=== PATIENT | male | born 1945 | race Caucasian/White ===

== ENCOUNTER → 2018-07-01 | Outpatient (CLI) | payer BC ==
[2018-07-01 12:58] LABS: Potassium 3.6 mmol/L (3.5-5.1)
[2018-07-01 13:02] LABS: Basophils # (auto) 0 uL; Basophils % (auto) 0.6 % (0.0-2.0); Eosinophils # (auto) 0.1 uL; Eosinophils % (auto) 1.7 % (0.0-7.0); Hemoglobin 14.4 g/dL (13.5-17.5); Lymphocytes # (auto) 1.2 uL; Monocytes # (auto) 0.3 uL; Neutrophils # (auto) 4.5 uL; White Blood Cell 6.1 10^3/uL (4.4-10.8)
[2018-07-01 13:04] LABS: Hematocrit 41.1 % (41.0-53.0); Lymphocytes % (auto) 19.3 % (10.0-50.0); Mean Corpuscular Hemoglobin 35.5 pg (28.0-32.0); Mean Corpuscular Hgb Conc. 35.1 g/dL (32.0-36.0); Monocytes % (auto) 4.9 % (0.0-12.0); Neutrophils % (auto) 73.5 % (37.0-80.0); Platelet Count (auto) 244 10^3/uL (140-450); Red Blood Cells 4.07 10^6/uL (4.5-5.90); Red Cell Distribution Width 13.2 % (11.8-14.3)
[2018-07-01 13:09] LABS: Folate (Folic Acid) 14.04 ng/mL (5.38-24)
[2018-07-01 13:11] LABS: BUN/Creatinine Ratio 24.5; Calcium 8.4 mg/dL (8.5-10.1)
[2018-07-01 13:14] LABS: Bilirubin, Total 0.8 mg/dL (0.2-1.0)
[2018-07-01 13:28] LABS: Urine Bacteria NONE SEEN /hpf (None Seen); Urine Blood Negative /uL (Negative); Urine Hyaline Cast FEW /lpf (0 - 2); Urine Specific Gravity 1.018 (1.001-1.035); Urine WBC 1 /hpf (0 - 3)
== END | disposition home or self-care (01) ==
LOC: LAB 10:13
PROVIDERS: ATTEND Nurse Practitioner
DX: E78.5 Hyperlipidemia, unspecified (principal)
CPT/HCPCS: 36415; 80053; 80061; 81001; 82306; 82607; 82746; 83036; 84443; 85025

== ENCOUNTER → 2018-11-01 | Outpatient (CLI) | payer BC ==
[2018-11-01 11:53] LABS: Basophils # (auto) 0 uL; Basophils % (auto) 0.9 % (0.0-2.0); Eosinophils # (auto) 0.3 uL; Eosinophils % (auto) 6.8 % (0.0-7.0); Hematocrit 40.5 % (41.0-53.0); Hemoglobin 13.9 g/dL (13.5-17.5); Lymphocytes % (auto) 21.4 % (10.0-50.0); Mean Corpuscular Hemoglobin 34.4 pg (28.0-32.0); Mean Corpuscular Hgb Conc. 34.3 g/dL (32.0-36.0); Mean Corpuscular Volume 100.5 fL (80.0-100.0); Monocytes # (auto) 0.3 uL; Monocytes % (auto) 5.3 % (0.0-12.0); Neutrophils # (auto) 3.1 uL; Neutrophils % (auto) 65.6 % (37.0-80.0); Platelet Count (auto) 214 10^3/uL (140-450); Red Blood Cells 4.03 10^6/uL (4.5-5.90); Red Cell Distribution Width 13.3 % (11.8-14.3); White Blood Cell 4.8 10^3/uL (4.4-10.8)
[2018-11-01 12:17] LABS: Urine Bacteria NONE SEEN /hpf (None Seen); Urine Blood Negative /uL (Negative); Urine Specific Gravity 1.017 (1.001-1.035); Urine WBC <1 /hpf (0 - 3)
[2018-11-01 12:20] LABS: Albumin 3.9 g/dL (3.4-5.0); Potassium 3.6 mmol/L (3.5-5.1)
[2018-11-01 12:27] LABS: BUN/Creatinine Ratio 16.9; Calcium 9.1 mg/dL (8.5-10.1); Total Protein 7.1 g/dL (6.4-8.2)
== END | disposition home or self-care (01) ==
LOC: LAB 11:11
PROVIDERS: ATTEND Nurse Practitioner
DX: E78.5 Hyperlipidemia, unspecified (principal)
CPT/HCPCS: 36415; 80053; 80061; 81001; 82306; 83036; 84443; 85025

== ENCOUNTER → 2019-04-26 | Outpatient (CLI) | payer BC ==
[2019-04-26 13:40] LABS: Basophils # (auto) 0 uL; Basophils % (auto) 0.5 % (0.0-2.0); Eosinophils # (auto) 0.1 uL; Neutrophils # (auto) 3.8 uL; Red Cell Distribution Width 13.3 % (11.8-14.3); White Blood Cell 5.4 10^3/uL (4.4-10.8)
[2019-04-26 13:43] LABS: Eosinophils % (auto) 2.4 % (0.0-7.0); Hematocrit 37.3 % (41.0-53.0); Hemoglobin 12.9 g/dL (13.5-17.5); Lymphocytes % (auto) 19.2 % (10.0-50.0); Mean Corpuscular Hgb Conc. 34.7 g/dL (32.0-36.0); Mean Corpuscular Volume 101.1 fL (80.0-100.0); Monocytes # (auto) 0.4 uL; Monocytes % (auto) 7.4 % (0.0-12.0); Neutrophils % (auto) 70.5 % (37.0-80.0); Platelet Count (auto) 211 10^3/uL (140-450); Red Blood Cells 3.68 10^6/uL (4.5-5.90)
[2019-04-26 13:52] LABS: Albumin 3.9 g/dL (3.4-5.0); Calcium 8.9 mg/dL (8.5-10.1); Potassium 3.5 mmol/L (3.5-5.1)
[2019-04-26 13:57] LABS: Bilirubin, Total 0.8 mg/dL (0.2-1.0)
[2019-04-26 14:08] LABS: Urine Bacteria NONE SEEN /hpf (None Seen); Urine Blood Negative /uL (Negative); Urine Specific Gravity 1.016 (1.001-1.035); Urine WBC 1 /hpf (0 - 3)
== END | disposition home or self-care (01) ==
LOC: LAB 13:00
PROVIDERS: ATTEND Nurse Practitioner
DX: E78.5 Hyperlipidemia, unspecified (principal)
CPT/HCPCS: 36415; 80053; 80061; 81001; 84443; 85025

== ENCOUNTER 2019-06-16 00:40 | Inpatient (IN) | payer BC ==
[2019-06-16] VITALS (15 sets, daily range): BP systolic 92–149; BP diastolic 66–117
[~2019-06-16] VITALS: Ht 160 cm; Wt 58.4 kg
--- NOTE | 2019-06-16 00:12 | NUR ---
YVONNE HOSPITALIST PAGED FOR ADMIT ORDERS
--- NOTE | 2019-06-16 00:20 | NUR ---
PATIENT XFER FROM THE [facility] REPORT RECEIVED FROM CIRCUS RIDER ABHILASH AND TRANSFER RN PATIENT NOTED TO BE AFIB 120'S TO 140'S, INFUSING AMIODARONE GTT TO LEFT WRIST 22G AT 0.5MG/MIN RIGHT FA IV FLUSHED AND NOTED TO BE LEAKING AND INFILTRATED, IV REMOVED WITH CATHETER FULLY INTACT AND PRESSURE DRESSING APPLIED PATIENT IS ALERT TO SELF ONLY , REORIENTED APPROPRIATELY AND NOTED TO FOLLOW COMMANDS, PUPILS ARE 4 AND REACTIVE TO LIGHT ON 2L NC WITH AUDIBLE EXPIRATORY WHEEZING POX 95%.BLANCHABLE REDNESS TO SACRUM WITH PREVENTATIVE OPTIFOAM. BILATERAL SOFT MITTENS PLACED ON PATIENT'S HANDS DUE TO PATIENT ATTEMPTING TO REMOVE IV AND MONITOR. BED ALARM ON. WILL CONTINUE POC
--- NOTE | 2019-06-16 00:45 | NUR ---
AM CARE COMPLETE BED BATH AND TRENT CARE DONE USING CHG WIPES AND WARM WASH CLOTHS NEW GOWN PLACED ON PATIENT AND REPOSITIONED IN BED FOR COMFORT
--- NOTE | 2019-06-16 01:00 | NUR ---
IV insertion IV access obtained, via clean sterile technique by inserting 22 gauge catheter at left upper arm after 1 attempt. IV secured properly. No trauma to site. Patient tolerated well.
[2019-06-16] MEDS ORDERED: MORPHINE SULF INJ 2 MG/ML SYRINGE 1ML IV PRN (01:15)
[2019-06-16] MEDS ORDERED: NITROGLYCERIN 0.4 MG SL TAB SL PRN (01:15)
[2019-06-16] MEDS ORDERED: ONDANSETRON HCL 4 MG/2 ML VIAL IV PRN (01:15)
--- NOTE | 2019-06-16 01:17 | NUR ---
SPOKE WITH YVONNE OVER THE PHONE REGARDING PATIENT STATUS AND HEART RATE PER YVONNE GIVE 75CC OF AMIO BOLUS AND CONTINUE THE 0.5MG/MIN DRIP AFTER WILL FOLLOW ORDERS THROUGH
[2019-06-16] MEDS ORDERED: AMIODARONE HCL 900 MG IV ONE (01:18)
[2019-06-16] MEDS: TEMAZEPAM 15 MG CAP PO PRN ×2 (01:55→22:22)
--- NOTE | 2019-06-16 01:55 | NUR ---
12 LEAD EKG DONE BY ZOHAIB STANLEY AND PLACED IN HARD CHART
[2019-06-16 01:58] LABS: Basophils # (auto) 0.1 uL; Basophils % (auto) 0.9 % (0.0-2.0); Eosinophils # (auto) 0.2 uL; Hematocrit 37.9 % (41.0-53.0); Hemoglobin 13.5 g/dL (13.5-17.5); Lymphocytes # (auto) 1.6 uL; Lymphocytes % (auto) 16.8 % (10.0-50.0); Mean Corpuscular Hemoglobin 35.2 pg (28.0-32.0); Mean Corpuscular Hgb Conc. 35.7 g/dL (32.0-36.0); Mean Corpuscular Volume 98.4 fL (80.0-100.0); Monocytes # (auto) 0.7 uL; Neutrophils # (auto) 6.9 uL; Neutrophils % (auto) 73.3 % (37.0-80.0); Platelet Count (auto) 295 10^3/uL (140-450); Red Blood Cells 3.85 10^6/uL (4.5-5.90); White Blood Cell 9.4 10^3/uL (4.4-10.8)
[2019-06-16 02:03] LABS: Urine Bacteria FEW /hpf (None Seen); Urine Blood 2+ /uL (Negative); Urine Hyaline Cast FEW /lpf (0 - 2); Urine Mucus FEW (None Seen); Urine Specific Gravity 1.027 (1.001-1.035); Urine WBC 13 /hpf (0 - 3)
[2019-06-16 02:16] LABS: Calcium 8.1 mg/dL (8.5-10.1); Potassium 4.2 mmol/L (3.5-5.1)
[2019-06-16 02:18] LABS: BUN/Creatinine Ratio 13.6
[2019-06-16 02:21] LABS: INR 1.06 (0.9-1.15); Partial Thromboplastin Time 35.6 sec (23.64-32.05)
[2019-06-16 02:23] LABS: Bilirubin, Total 0.6 mg/dL (0.2-1.0); Total Protein 6.5 g/dL (6.4-8.2)
[2019-06-16] MEDS ORDERED: ATORVASTATIN 20 MG TAB PO ONE (02:30)
[2019-06-16] MEDS: ALBUTEROL SULF 2.5 MG/0.5ML(0.5%) NEB SOLN NEB PRN ×2 (02:57→18:14)
--- NOTE | 2019-06-16 04:39 | NUR ---
ROUNDS PATIENT APPEARS TO BE SLEEPING WITH NO S/S OF DISTRESS OR SOB, BREATHING UNLABORED AND SYMMETRICAL ON 2L NC WITH POX 97%. AFIB 104, RR 22. BED ALARM ON. WILL CONTINUE TO MONITOR.
[2019-06-16] MEDS: LEVOTHYROXINE SODIUM 25 MCG TAB PO SCH (05:50)
--- NOTE | 2019-06-16 06:07 | NUR ---
RT NOTE: WENT TO PTS ROOM TO ASSESS FOR PRN BREATHING TX, PT WAS SLEEPING AT THIS TIME. NO S/S OF SOB. HR 113, RR 18, SPO2 96% ON 2L NC. WILL CONTINUE TO MONITOR PT.
[2019-06-16] MEDS: PANTOPRAZOLE 40 MG TAB PO SCH (06:26)
--- NOTE | 2019-06-16 06:53 | NUR ---
END OF SHIFT NOTE PATIENT RESTING IN BED WITH EYES CLOSED, NO S/S OF DISTRESS OR SOB. CONTINUES TO BE IN AFIB 111, ON 2L NC 98%. PATIENT REMAINS STABLE THROUGHOUT THE NIGHT, BP CURRENTLY IS 122/89. BED ALARM ON. WILL CONTINUE MONITORING AND ENDORSE CARE TO DAY SHIFT RN.
--- NOTE | 2019-06-16 07:30 | NUR ---
RECEIVED PATIENT SEMI FOWLERS IN BED, ANSWERS TO NAME BEING CALLED, A/O TIMES 3, ABLE OT FOLLOW COMMANDS, HR 120 IN AFIB, TRENT TO GRAVITY, DENIES PAIN, SALINE LOCK TO THE LEFT WRIST FLUSHED AND PATENT WAS PLACED WHILE THE PATIENT WAS AT [facility], SALINE LOCK TO THE LAC 22G WITH AMIODARONE INFUSING AT 16.66ML/HR OR 0.5 MG, BY THE IV PUMP,
--- NOTE | 2019-06-16 08:30 | NUR ---
WAS FEED HIS BREAKFAST NO PROBLEM WITH SWALLOWING
--- NOTE | 2019-06-16 08:55 | NUR ---
GRANDSON AT BEDSIDE PATIENT APPEARS TO BE ANXIOUS, HR INCREASING IN THE 130'S -140'S
--- NOTE | 2019-06-16 09:18 | NUR ---
SITTING UP IN BED WITH EYES CLOSED APPEARS TO BE SLEEPING
--- NOTE | 2019-06-16 09:54 | NUR ---
BELEN IN TO SEE THE PATIENT
[2019-06-16] MEDS: METOPROLOL TARTRATE 25 MG TAB PO SCH ×2 (10:00→22:00)
[2019-06-16] MEDS: HCTZ 25 MG TAB PO SCH (10:00)
--- NOTE | 2019-06-16 10:00 | NUR ---
EXPLAIN MEDICATIONS TO THE PATIENT REGARDING THE DOSAGE, USAGE AND THE SIDE EFFECTS, RENZO BELEN STATES THE PATIENT DOESN'T TAKE THE HTCZ IT WAS STOPPED, B/P IS 96/69, B/P MEDS WILL BE HELD AT THIS TIME,, SANTIAGO STATES HIS B/P RUNS LOW AT HOME AND THEY KEEP HIM LYING FLAT TO KEEP IT UP
--- NOTE | 2019-06-16 10:30 | NUR ---
RECHECKED B/P 110/79
[2019-06-16] MEDS ORDERED: BENA10TA9 PO (10:35)
[2019-06-16] MEDS ORDERED: ASP81EC PO (10:35)
[2019-06-16] MEDS ORDERED: LEV50T PO (10:35)
--- NOTE | 2019-06-16 10:35 | NUR ---
ECHO BEING DONE,
[2019-06-16] MEDS: ASPirin 81 mg TAB PO SCH (10:59)
--- NOTE | 2019-06-16 11:30 | NUR ---
LYING IN BED ABLE TO ANSWER MOST QUESTIONS EXCEPT THE THE DATE, VERY FIDGETY
--- NOTE | 2019-06-16 12:23 | NUR ---
STILL MOVING AROUND IN THE BED, PULLING ON THE COVERS, SAYS HE CAN'T BE STILL
--- NOTE | 2019-06-16 12:49 | NUR ---
PATIENT BEING FED HIS LUNCH
--- NOTE | 2019-06-16 13:28 | NUR ---
DAUGHTER IN TO VISIT THE PATIENT AND BROUGHT IN SOME FOOD THAT SHE THOUGHT HE MIGHT EAT
--- NOTE | 2019-06-16 14:05 | NUR ---
DR MARK IN TO SEE THE PATIENT AND SPOKE TO THE DAUGHTER ABOUT THE POC
[2019-06-16] MEDS ORDERED: cefTRIAXone 1GM/50ML D5W 50 ML IV ONE (14:15)
[2019-06-16] MEDS ORDERED: AZITHROMYCIN 500MG/ 250ML 250 ML IV ONE (14:15)
[2019-06-16 14:34] LABS: Cholesterol 130 mg/dL (< 200); HDL Cholesterol 33 mg/dL (40-59); LDL Cholesterol 90 mg/dL (< 100); Triglycerides 98 mg/dL (< 150)
--- NOTE | 2019-06-16 16:00 | NUR ---
DR PAREDES IN TO SEE THE PATIENT AND SPOKE WITH THE DAUGHTER ABOUT THE POC, STATES HE MAY DO A STRESS TEST TOMORROW
--- NOTE | 2019-06-16 16:20 | NUR ---
NOTIFIED DR MARK OF THE D- DIMER RESULTS OF 0.59
--- NOTE | 2019-06-16 16:45 | NUR ---
DAUGHTER LEFT AND WENT HOME AND GRANDSON BACK TO STAY WITH HE PATIENT
--- NOTE | 2019-06-16 16:59 | NUR ---
PATIENT STATES HE IG GOING TO WATCH THE FOOTBALL GAME
--- NOTE | 2019-06-16 17:30 | NUR ---
PATIENT TOOK OFF THE GLOVES AND IS NOW IS TRYING TO TAKE OFF OXYGEN AND THE MONITOR WIRES, GLOVES REPLACED
--- NOTE | 2019-06-16 18:16 | NUR ---
DAUGHTER IN TO SEE THE PATIENT, MED NEB TREATMENT BEING GIVEN DUE TO PATIENT WHEEZING
--- NOTE | 2019-06-16 18:19 | NUR ---
RT NOTE PT WAS SEEN BY RT FOR PRN HHN TX. PT HAS AUDIBLE WHEEZES. PT TOLERATES WELL VIA MASK. FAMILY AT BEDSIDE. NO ADVERSE REACTION NOTED. CONT ORDERED Addendum: 06/16/19 at 1820 by Damaris Adams RT Amended: Links added.
--- NOTE | 2019-06-16 18:33 | NUR ---
SITTING UP IN THE BED, BEING FEED HIS DINNER BY THE FAMILY, O2 AT 2L BY N/C, A/ O BUT CONFUSED AT TIMES, TRENT TO GRAVITY, AMIODARONE DRIP INFUSING INTO THE LAC AT 16.66ML/HR BY THE IV PUMP, SALINE LOCK TO THE LEFT WRIST FLUSHED AND PATIENT, DENIES PAIN , WILL CONTINUE TO MONITOR AND GIVE REPORT TO THE NEXT SHIFT
--- NOTE | 2019-06-16 20:05 | NUR ---
INITIAL CONTACT ASSUMED CARE OF PATIENT PATIENT APPEARS TO BE RESTING IN BED COMFORTABLY IN SEMI-FOWLERS POSITION AAOX4, VITAL SIGNS WITHIN NORMAL LIMITS. NO S/S OF DISTRESS, PATIENT DENIES PAIN AT THIS TIME NOTED PATIENT IS ON AN AMIODARONE DRIP. SEE IV SPREADSHEET FOR MEDICATIONS AND TITRATION. TRENT CATHETER IN TACT AND DRAINING TO GRAVITY. IV LINES PATENT INTACT AND ASYMPTOMATIC AT THIS TIME. PATIENT IS IN FULL VIEW OF NURSES STATION. SAFETY MAINTAINED, WILL CONTINUE TO MONITOR
--- NOTE | 2019-06-16 21:15 | NUR ---
FAMILY LEFT THE BEDSIDE GRANDSON STATED THAT HE WOULD BE BACK IN THE MORNING
[2019-06-16] MEDS: AMIODARONE HCL 900 MG in DEXTROSE 500 ML IV SCH (21:32)
--- NOTE | 2019-06-16 22:00 | NUR ---
FAMILY IN THE WAITING AREA I SPOKE TO FAMILY MEMBER AND ASKED THAT SHE RETURN TO VISIT PATIENT IN THE MORNING. PATIENT IS SLEEPING AT THIS TIME. I EXPLAINED THAT WHEN FAMILY IS AT THE BEDSIDE PATIENT'S HR INCREASES. ALSO PATIENT STATED THAT HE HAD NOT SLEPT DURING THE DAY AND WAS TIRED.
--- NOTE | 2019-06-16 23:00 | NUR ---
PATIENT STATUS PATIENT PULLED OF BOTH SOFT MITTENS PATIENT GIVEN TEACHING ON THE IMPORTANCE OF KEEPING IV LINES IN TACT SOFT MITTENS REPLACED SAFETY MAINTAINED, WILL CONTINUE TO MONITOR
[2019-06-17] VITALS (41 sets, daily range): BP systolic 76–166; BP diastolic 51–99
--- NOTE | 2019-06-17 03:45 | NUR ---
22 G IV LEFT A/C DISCONTINUED RED DISCOLORATION TO IV SITE, PATIENT COMPLAINING OF DISCOMFORT
--- NOTE | 2019-06-17 04:05 | NUR ---
20 G IV RIGHT WRIST
[2019-06-17] MEDS: AMIODARONE HCL 900 MG in DEXTROSE 500 ML IV SCH (05:44)
[2019-06-17] MEDS: LEVOTHYROXINE SODIUM 25 MCG TAB PO SCH (07:08)
[2019-06-17] MEDS: PANTOPRAZOLE 40 MG TAB PO SCH (07:08)
--- NOTE | 2019-06-17 08:00 | NUR ---
Opening Shift Note Assumed care of patient, awake and alert. Patient A&Ox2. Patient has mitts on bilateral hands. Patient pulling at wires and IV lines. PMSC and skin intact bilateral. Patient on the monitor. Patient on 2L NC saturation at 95%.IV right wrist 20 running Amiodarone at 0.5mg/hr and left wrist 22G saline locked. Both IV's Patent, clean, dry, and intact. Caldera to gravity. No S/S of distress/SOB or pain. Instructed on POC and to call for assist. Bed locked and in the lowest position, side rails up x3, call light with in reach. Will continue to monitor.
--- NOTE | 2019-06-17 08:45 | NUR ---
Patient refused to eat with assist from me. Patient's grandson Andrew at bedside and assisted patient to eat about 25% of his breakfast. Will continue to monitor.
--- NOTE | 2019-06-17 09:00 | NUR ---
Patient had a small brown/formed BM on bedpan. Will continue to monitor.
[2019-06-17] MEDS: ASPirin 81 mg TAB PO SCH (09:21)
[2019-06-17] MEDS: HCTZ 25 MG TAB PO SCH (09:21)
[2019-06-17] MEDS: cefTRIAXone 1GM/50ML D5W 50 ML IV SCH (09:22)
[2019-06-17] MEDS: METOPROLOL TARTRATE 25 MG TAB PO SCH ×3 (09:22→21:50)
--- NOTE | 2019-06-17 10:00 | NUR ---
Medication dosages, usages, and side effects explained to patient. Patient unable to comprehend. Will continue to monitor.
--- NOTE | 2019-06-17 10:15 | NUR ---
Dr. Ramirez at bedside.
--- NOTE | 2019-06-17 10:45 | NUR ---
Stress Test Update Stress Test on hold. Pt. on amiodarone drip at 0.5 mg/min, per primary RN HR elevated and as of right now there are no orders to stop drip. Pt able to eat meals as scheduled and only to remain NPO before stress test procedure next week. Nuclear Medicine notified. Primary RN aware on POC.
--- NOTE | 2019-06-17 11:10 | NUR ---
Midline Placement Patient educated on need for midline placement. All risks and benefits explained and all questions and concerns addresses prior to procedure. 18g/10cm midline inserted via right basilic vein using Ultrasound. Sterile technique utilized. Blood return obtained from single lumen and flushed easily with NS using proper technique. Midline secured with saline lock; biodisc and occlusive dressing applied. Primary RN notified. Midline lot #[id number]. Note: Midline placed by Ella Cerda RN.
[2019-06-17] MEDS: AZITHROMYCIN 500MG/ 250ML 250 ML IV SCH (12:08)
--- NOTE | 2019-06-17 12:30 | NUR ---
Patient refused to eat lunch tray. Encouraged patient to drink water but patient refused. Will continue to monitor.
[2019-06-17 12:37] LABS: Calcium 8.4 mg/dL (8.5-10.1); Potassium 4.2 mmol/L (3.5-5.1)
[2019-06-17 12:39] LABS: BUN/Creatinine Ratio 16.9
[2019-06-17] MEDS: LEVALBUTEROL HCL 1.25 MG/3 ML NEB NEB SCH ×2 (13:50→18:19)
--- NOTE | 2019-06-17 13:50 | NUR ---
Paged respiratory for patient to receive breathing treatment.
--- NOTE | 2019-06-17 13:55 | NUR ---
Paged Dr. Ramirez. RT requested patient be placed on Bi-pap due to high respiratory rate of 40-50BPM. Dr. Ramirez ordered Bi-pap and for patient to be placed on Eliquis 2.5mg PO BID starting tonight.
--- NOTE | 2019-06-17 14:08 | NUR ---
Code called Patients respirations dropped from 46 to 15, Patient was guppy breathing. Eyes fixed with no response from patient. Femoral pulse was barely palpable. Dr. Schwartz at bedside. Bethany ICU charge and Brigitte MARTEL at bedside. See code sheet for details. Rosc back at 1418.
[2019-06-17] MEDS ORDERED: MIDAZOLAM HCL 1MG/1ML-2 ML VIAL ONE (14:12)
[2019-06-17] MEDS ORDERED: ETOMIDATE (2MG/ML) 20ML VIAL IV ONE (14:12)
[2019-06-17] MEDS ORDERED: SODIUM BICARBONATE 8.4 % INJ 50ML VIAL IV ONE (14:20)
--- NOTE | 2019-06-17 14:20 | NUR ---
Called Patient's daughter Kendra to come into hospital to explain Patient's situation.
--- NOTE | 2019-06-17 14:30 | NUR ---
Report given to Geronimo DANIEL. Patient going to ICU bed 109.
--- NOTE | 2019-06-17 14:45 | NUR ---
diagnostics tech at bedside. Addendum: 06/17/19 at 1503 by Patricia Falcon RN Time was 1345 not 1445
--- NOTE | 2019-06-17 14:50 | NUR ---
Spoke with Patient's daughter Kendra and family about patient situation. Family sent to ICU waiting room. FREDY galan.
--- NOTE | 2019-06-17 15:00 | NUR ---
Pt being admitted to ICU PHIL RUDD admitted to ICU via gurney on cardiac cath technician, and portable 02. Patient transfered to bed, connected to ICU monitoring and oxygen, and weighed by bedscale. Patient oriented to Mushtaq barrow RN, unit, room, bed, and unit policies regarding patient care and visiting hours. All questions and concerns addressed, patient verbalized understanding.
--- NOTE | 2019-06-17 15:00 | NUR ---
PT TRANSPORTED BY RT WALLS WITH NO INCIDENT REPORTED. WILL CONTINUE TO MONITOR PT
[2019-06-17] MEDS ORDERED: NOREPINEPHRINE 8 MG/250ML KIT 250 ML IV ONE (15:04)
--- NOTE | 2019-06-17 16:05 | NUR ---
FAMILY AT BEDSIDE. UPDATED ON PATIENT STATUS. ALL QUESTIONS AND CONCERNS ADDRESSED AT THIS TIME
--- NOTE | 2019-06-17 16:23 | NUR ---
DR. WELLINGTON AT BEDSIDE
[2019-06-17] MEDS ORDERED: SODIUM BICARBONATE 50ML VIAL 150 ML in SOD CHL 0.45% 1,000 ML IV SCH ×4 (16:45)
[2019-06-17] MEDS: PHENYLEPHRINE INJ 20 MG in SODIUM CHL 0.9% 250 ML IV SCH (16:48)
--- NOTE | 2019-06-17 17:06 | NUR ---
assessment Patient is a 74 year old male who is confused. I have called patients daughter Kendra at [phone] with no answer. Will continue to try and call. Addendum: 06/17/19 at 1709 by Karley SANCHEZ Amended: Links added.
[2019-06-17] MEDS: NOREPINEPHRINE 8 MG/250ML KIT 250 ML IV SCH ×2 (17:10→23:38)
[2019-06-17] MEDS: MIDAZOLAM DRIP 50 mg/50mL 50 ML IV SCH ×2 (17:11→21:36)
[2019-06-17] MEDS: SODIUM BICARBONATE 50ML VIAL 150 ML in SOD CHL 0.45% 1,000 ML IV SCH (17:39)
--- NOTE | 2019-06-17 18:19 | NUR ---
Respiratory note: RECEIVED PT ON VENT V15, VENT CONNECTED TO RED OUTLET AND O2 SOURCE. ALARMS ARE SET AND AUDIBLE. AMBU BAG AND MASK. BS ARE FINE COURSE, SXD SCANT CREAMY BAUGH. RN EULALIA AND PTS FAMILY AT BEDSIDE. MED NEB TX GIVEN INLINE WITHOUT ADVERSE REACTION NOTED. RT NAME AND PAGER ASSIGNMENT WRITTEN ON PTS ROOM BOARD.
--- NOTE | 2019-06-17 18:35 | NUR ---
DR. AVALOS PAGED AWAITING CALLBACK
--- NOTE | 2019-06-17 18:43 | NUR ---
DR. GALAN AT BEDSIDE SPEAKING WITH FAMILY
--- NOTE | 2019-06-17 19:00 | NUR ---
Respiratory note: TITRATED FIO2 TO FROM 80 TO 70% DUE TO ABG RESULTS. PER MD WELLINGTON, TITRATE TOLERATED. FREDY ESTEBAN AWARE OF CHANGE.
--- NOTE | 2019-06-17 19:13 | NUR ---
DR. AVALOS CALLBACK ORDERS RECEIVED
--- NOTE | 2019-06-17 19:21 | NUR ---
OPENING NOTES ASSUMED CARE, ON VENT AC MODE, SEDATION WITH VERSED @ MG/HR, AMIODARONE @ 0.5 MG/MIN, LEVOPHED @ 15 MCG/MIN, 1/2 NS W/ 3 VIALS NaHCO3 @ 125 ML/HR INFUSING IN THE RIGHT IJ, OGT IN PLACE, TRENT CATHETER DRAINING TO A LIGHT ARSLAN URINE. HR NOTED IN THE 140'S - 160'S, BP 143/82, AFEBRILE T 98.2 ORALLY. SPO2 99 %, CLEAR LUNG SOUNDS NOTED. BED IN LOWEST POSITION WITH SIDE RAILS UP, BED ALARM ON. WILL CONTINUE CARE.
--- NOTE | 2019-06-17 19:21 | NUR ---
REPORT GIVEN TO RORO DANIEL TO ASSUME CARE
[2019-06-17] MEDS ORDERED: DIGOXIN (250MCG/ML) 2 ML AMPULE IV ONE (19:30)
--- NOTE | 2019-06-17 20:00 | NUR ---
SCD'S PLACED ON BOTH LEGS.
--- NOTE | 2019-06-17 20:11 | NUR ---
Respiratory note: AT BEDSIDE FOR ROUTINE VENT CHECK. FIO2 TITRATED FROM 70% TO 60% RN RORO AT BEDSIDE AND AWARE OF O2 CHANGE.
--- NOTE | 2019-06-17 20:15 | NUR ---
FAMILY AT BEDSIDE
[2019-06-17] MEDS ORDERED: EPINEPHrine HCL 1 MG/10 ML SYRG IV ONE (20:24)
[2019-06-17] MEDS ORDERED: SODIUM BICARBONATE 8.4% INJ 50ML SYRINGE IV ONE (20:24)
--- NOTE | 2019-06-17 20:28 | NUR ---
LEVOPHED DECREASED TO 6 MCG/MIN, BP 143/82, HR 114.
--- NOTE | 2019-06-17 21:48 | NUR ---
D/C PIV'S IN BOTH WRISTS, REDNESS NOTED. PRESSURE APPLIED TO SITE.
--- NOTE | 2019-06-17 21:50 | NUR ---
LOPRESSOR HELD, PT ON LEVOPHED @ 4 MCG/MIN, BP 123/68, HR 95.
--- NOTE | 2019-06-17 22:19 | NUR ---
Respiratory note: AT BEDSIDE FOR ROUTINE VENT CHECK. FIO2 TITRATED FROM 60% TO 50% RN RORO AT BEDSIDE AND AWARE OF O2 CHANGE.
[2019-06-17] MEDS: APIXABAN 2.5 MG TAB NG SCH (23:37)
[2019-06-18] VITALS (77 sets, daily range): BP systolic 90–131; BP diastolic 45–75
[2019-06-18] MEDS: LEVALBUTEROL HCL 1.25 MG/3 ML NEB NEB SCH ×4 (00:15→19:17)
--- NOTE | 2019-06-18 00:15 | NUR ---
Respiratory note: AT BEDSIDE FOR ROUTINE VENT CHECK. SXD FOR SCANT CLEAR. MED NEB TX GIVEN INLINE WITHOUT ADVERSE REACTION NOTED. WILL CONTINUE TO MONITOR.
--- NOTE | 2019-06-18 02:21 | NUR ---
Respiratory note: AT BEDSIDE FOR ROUTINE VENT CHECK. FIO2 TITRATED FROM 50% TO 40% RN RORO MADE AWARE OF O2 CHANGE.
[2019-06-18] MEDS: SODIUM BICARBONATE 50ML VIAL 150 ML in SOD CHL 0.45% 1,000 ML IV SCH (03:19)
--- NOTE | 2019-06-18 04:00 | NUR ---
MORNING CARE DONE, COMPLETE LINENS CHANGED, REPOSITIONED FOR COMFORT.
--- NOTE | 2019-06-18 04:09 | NUR ---
Respiratory note: AT BEDSIDE FOR END OF SHIFT VENT CHECK. HME AND SX CATHETER CHANGED AT THIS TIME. NO OTHER VENT CHANGES MADE. WILL HAVE DAY SHIFT RT CONTINUE POC.
[2019-06-18 04:21] LABS: Basophils # (auto) 0.1 uL; Eosinophils # (auto) 0 uL; Hemoglobin 11.8 g/dL (13.5-17.5); Lymphocytes # (auto) 1.2 uL; Mean Corpuscular Hgb Conc. 35.6 g/dL (32.0-36.0); Monocytes # (auto) 0.3 uL; Neutrophils # (auto) 11.1 uL; Red Cell Distribution Width 13.5 % (11.8-14.3)
[2019-06-18 04:23] LABS: Basophils % (auto) 0.8 % (0.0-2.0); Eosinophils % (auto) 0.2 % (0.0-7.0); Hematocrit 33.1 % (41.0-53.0); Lymphocytes % (auto) 9.7 % (10.0-50.0); Mean Corpuscular Hemoglobin 34.7 pg (28.0-32.0); Mean Corpuscular Volume 97.6 fL (80.0-100.0); Monocytes % (auto) 2.6 % (0.0-12.0); Neutrophils % (auto) 86.7 % (37.0-80.0); Nucleated Red Blood Cells % 0.3 %; Platelet Count (auto) 247 10^3/uL (140-450); Red Blood Cells 3.39 10^6/uL (4.5-5.90); White Blood Cell 12.8 10^3/uL (4.4-10.8)
[2019-06-18 04:55] LABS: Albumin 2.5 g/dL (3.4-5.0); BUN/Creatinine Ratio 17.3; Calcium 7.7 mg/dL (8.5-10.1); Potassium 3.5 mmol/L (3.5-5.1)
[2019-06-18 05:03] LABS: Bilirubin, Total 0.7 mg/dL (0.2-1.0); Total Protein 5.3 g/dL (6.4-8.2)
[2019-06-18] MEDS: LEVOTHYROXINE SODIUM 25 MCG TAB PO SCH (06:05)
[2019-06-18] MEDS: MIDAZOLAM DRIP 50 mg/50mL 50 ML IV SCH (06:15)
--- NOTE | 2019-06-18 06:26 | NUR ---
END OF SHIFT LAYING ON BED STILL ON VENT, AC MODE, FIO2 40%, AMIODARONE DRIP @ 0.5 MG/MIN, LEVOPHED @ 2 MCG/MIN AND BICARBONATE DRIP @ 125 ML/HR. VS : BP 90/66, HR 86, R18, SPO2 96%, AFEBRILE. WILL GIVE THE REPORT TO DAY SHIFT RN.
--- NOTE | 2019-06-18 06:45 | NUR ---
Respiratory note: RECEIVED PATIENT ON V15 ESPRIT VENT ORALLY INTUBATED WITH AN 8.0 ETT SECURED VIA FELICITAS AT THE 22CM MARKING AT THE LIP, AND MECHANICALLY VENTILATED WITH THE CHARTED SETTINGS. SPO2 95%, LUNG SOUNDS CL/DIM T/O, NO SECRETIONS WHEN SUCTIONED. SKIN IS WARM/DRY TO THE TOUCH AND IS INTACT NEAR FELICITAS SITE. THERE IS AN OGT IN PLACE AND SECURED TO THE ETT, A TRIPLE LUMEN CENTRAL LINE IS PLACED IN THE RIGHT IJ, AND A MIDLINE CATHETER IS PLACED IN THE RIGHT UPPER ARM. THER EIS NON PITTING EDEMA NOTED ON BOTH ARMS, WITH THINNING OF THE SKIN ALSO NOTED. NO EDEMA IN LOWER EXTREMITIES, LEG SEQUENTIALS ARE IN PLACE AND OPERATIONAL. NO NEW AM CXR TO ASSESS. PATIENT IS UNRESPONSIVE TO BOTH VERBAL/TACTILE STIMULI AND IS SEDATED ON A VERSED DRIP. HE IS RESTING COMFORTABLY AND TOLERATING VENT WELL, NO CHANGES MADE. VENT PLUGGED INTO RED OUTLET AND ALL ALARMS ARE SET AND AUDIBLE. WILL CONTINUE TO ASSESS PATIENT WELL VENTILATOR FUNCTION. MED-NEB HELD MEDICATION WAS UNAVAILABLE. WILL CONSULT PHARMACY FOR MEDS.
--- NOTE | 2019-06-18 07:05 | NUR ---
OPENING NOTE SHIFT REPORT RECEIVED AND ASSUMED CARE OF PT FROM RORO DANIEL
--- NOTE | 2019-06-18 08:00 | NUR ---
DR. Gracie MARK AT BEDSIDE STATES HE WOULD LIKE ME TO COMMUNICATE TO FAMILY TO BE AT BEDSIDE TOMORROW AT 0730AM TO UPDATE. WILL INFORM FAMILY. ORDERS RECEIVED.
--- NOTE | 2019-06-18 08:30 | NUR ---
RN STARS AT BEDSIDE
--- NOTE | 2019-06-18 09:30 | NUR ---
EEG COMPLETED AT BEDSIDE. FREDY MEDINA AWARE.
[2019-06-18] MEDS: cefTRIAXone 1GM/50ML D5W 50 ML IV SCH (09:47)
[2019-06-18] MEDS: METOPROLOL TARTRATE 25 MG TAB PO SCH ×2 (09:48→22:19)
[2019-06-18] MEDS: APIXABAN 2.5 MG TAB NG SCH ×2 (09:49→22:18)
[2019-06-18] MEDS: DIGOXIN (250MCG/ML) 2 ML AMPULE IV SCH (09:56)
[2019-06-18] MEDS: HCTZ 25 MG TAB PO SCH (09:57)
--- NOTE | 2019-06-18 10:10 | NUR ---
DR. AVALOS AT BEDSIDE NO NEW ORDERS AT THIS TIME
[2019-06-18] MEDS: OMEPRAZOLE 20MG/10ML ORAL SUSP GT SCH (10:11)
--- NOTE | 2019-06-18 10:20 | NUR ---
Respiratory note: VT DECREASED TO [address] WELLINGTON'S TELEPHONE ORDER. FREDY POP MADE AWARE OF CHANGE.
[2019-06-18] MEDS: AZITHROMYCIN 500MG/ 250ML 250 ML IV SCH (10:33)
[2019-06-18] MEDS: AMIODARONE HCL 900 MG in DEXTROSE 500 ML IV SCH (11:25)
--- NOTE | 2019-06-18 12:00 | NUR ---
LEVOPHED TURNED OFF WILL CONTINUE TO MONITOR
--- NOTE | 2019-06-18 13:00 | NUR ---
VERSED TURNED OFF WILL CONTINUE TO MONITOR
--- NOTE | 2019-06-18 17:00 | NUR ---
DR. MILIAN CALLED REGARDING GI CONSULT FOR REPORT OF HEMATURIA WHILE AT [facility]. ORDERS RECEIVED
--- NOTE | 2019-06-18 18:30 | NUR ---
PT TAKEN DOWN FOR CT WITH THIS RN, RESPIRATORY THERAPIST, AND CHRISTMAS TREE GRADER. WILL CONTINUE TO MONITOR
--- NOTE | 2019-06-18 18:33 | NUR ---
RT Transport Note: Patient transported to {CT} with RN {MARIA A}. Patient transported to and from procedure on ventilator with previous ordered settings. Patient on pvc monitor with alarms set and audible, ambu-bag/mask connected to 02 tank. Patient returned to room with no adverse reaction noted. Transport completed without incident.
--- NOTE | 2019-06-18 19:15 | NUR ---
CLOSING NOTE SHIFT REPORT GIVEN AND CARE ENDORSED TO HARDIK DANIEL
--- NOTE | 2019-06-18 19:17 | NUR ---
RT NOTE RECEIVED PT INTUBATED AND ON VENT V15 ON STATED SETTINGS. VENT IS PLUGGED TO RED OUTLET. ALARMS ARE ON AND AUDIBLE AT NURSES STATION. AMBU BAG AT BEDSIDE AND CONNECTED TO O2 SOURCE. 8.0 ETT IS SECURED AT 22 TO THE ORAL LEFT WITH ANCHORFAST. BILATERAL BS ARE CLEAR/DIMINISHED. PT WAS SUCTIONED FOR SMALL RETURN. HHN GIVEN INLINE WITH 1.25 MG XOPENEX WITHOUT ADVERSE REACTION NOTED. CONT ORDERED. POX 97% Addendum: 06/18/19 at 2048 by Damaris Adams RT Amended: Links added.
--- NOTE | 2019-06-18 19:50 | NUR ---
OPEN NOTES Received patient intubated, not on any sedation. Patient opens eyes half way, has cough and gag but not following commands. Suctioned moderate amount oral secretions -thick and lee colored. VS stable. Physical assessment done -refer intervention. Still with IV Amiodarone drip at 16.66ml/hr. ECG - Atrial Fibrillation HR 65-80/min. BP stable. Repositioned,skin assessed. Right IJ TLC dressing dry and intact, unused port -saline locked. OGT clamped-no aspirate noted. Caldera catheter (Bardex) Fr16 in placed with yellowish cloudy urine output. will continue to monitor
--- NOTE | 2019-06-18 20:13 | NUR ---
RT NOTE ROUTINE VENT CHECK DONE. PT INTUBATED AND ON VENT V15 ON STATED SETTINGS. VENT IS PLUGGED TO RED OUTLET. ALARMS ARE ON AND AUDIBLE AT NURSES STATION. AMBU BAG AT BEDSIDE AND CONNECTED TO O2 SOURCE. 8.0 ETT IS SECURED AT 22 TO THE ORAL LEFT WITH ANCHORFAST. CONT ORDERED. POX 98% Addendum: 06/18/19 at 2051 by Damaris Adams RT Amended: Links added.
[2019-06-18] MEDS: PHENYLEPHRINE INJ 20 MG in SODIUM CHL 0.9% 250 ML IV SCH ×2 (20:52→20:53)
--- NOTE | 2019-06-18 22:00 | NUR ---
HYGIENE Sponge bath done. Hair washed. Partial linen change done. Skin assessed. Repositioned
--- NOTE | 2019-06-18 22:21 | NUR ---
RT NOTE ROUTINE VENT CHECK DONE. PT INTUBATED AND ON VENT V15 ON STATED SETTINGS. VENT IS PLUGGED TO RED OUTLET. ALARMS ARE ON AND AUDIBLE AT NURSES STATION. AMBU BAG AT BEDSIDE AND CONNECTED TO O2 SOURCE. 8.0 ETT IS SECURED AT 22 TO THE ORAL LEFT WITH ANCHORFAST. PT SUCTIONED FOR SCANT RETURN. CONT ORDERED. POX 96% Addendum: 06/18/19 at 2227 by Damaris Adams RT Amended: Links added.
[2019-06-19] VITALS (106 sets, daily range): BP systolic 11–152; BP diastolic 52–86
--- NOTE | 2019-06-19 00:03 | NUR ---
RE-ASSESS Patient waking up more, movement on the hands noted but still not following commands. VS stable. Suctioned, oral care done. Repositioned.
[2019-06-19] MEDS: LEVALBUTEROL HCL 1.25 MG/3 ML NEB NEB SCH ×5 (00:40→23:35)
--- NOTE | 2019-06-19 00:40 | NUR ---
RT NOTE ROUTINE VENT CHECK DONE. PT INTUBATED AND ON VENT V15 ON STATED SETTINGS. VENT IS PLUGGED TO RED OUTLET. ALARMS ARE ON AND AUDIBLE AT NURSES STATION. AMBU BAG AT BEDSIDE AND CONNECTED TO O2 SOURCE. 8.0 ETT IS SECURED AT 22 TO THE ORAL LEFT WITH ANCHORFAST.PT SUCTIONED FOR SCANT RETURN. HHN GIVEN INLINE WITH 1.25 MG XOPENEX WITHOUT ADVERSE.CONT ORDERED. POX 97% Addendum: 06/19/19 at 0130 by Damaris Adams RT Amended: Links added.
[2019-06-19] MEDS: PHENYLEPHRINE INJ 20 MG in SODIUM CHL 0.9% 250 ML IV SCH ×3 (01:47→20:38)
--- NOTE | 2019-06-19 02:19 | NUR ---
RT NOTE ROUTINE VENT CHECK DONE. PT INTUBATED AND ON VENT V15 ON STATED SETTINGS. VENT IS PLUGGED TO RED OUTLET. ALARMS ARE ON AND AUDIBLE AT NURSES STATION. AMBU BAG AT BEDSIDE AND CONNECTED TO O2 SOURCE. 8.0 ETT IS SECURED AT 22 TO THE ORAL RIGHT WITH ANCHORFAST. PT SUCTIONED FOR SCANT RETURN. HME AND INLINE SUCTION CHANGED WITHOUT INCIDENT.CONT ORDERED. POX 99% Addendum: 06/19/19 at 0320 by Damaris Adams RT Amended: Links added.
--- NOTE | 2019-06-19 04:08 | NUR ---
RT NOTE ROUTINE VENT CHECK DONE. PT INTUBATED AND ON VENT V15 ON STATED SETTINGS. VENT IS PLUGGED TO RED OUTLET. ALARMS ARE ON AND AUDIBLE AT NURSES STATION. AMBU BAG AT BEDSIDE AND CONNECTED TO O2 SOURCE. 8.0 ETT IS SECURED AT 22 CM TO THE ORAL RIGHT WITH ANCHORFAST. FIO2 TITRATED TO 30%, FREDY DYE AT BEDSIDE AND AWARE. CONT ORDERED. POX 98% Addendum: 06/19/19 at 0425 by Damaris Adams RT Amended: Links added.
[2019-06-19 04:59] LABS: Basophils # (auto) 0 uL; Basophils % (auto) 0.2 % (0.0-2.0); Eosinophils # (auto) 0.1 uL; Monocytes # (auto) 0.4 uL; White Blood Cell 9.9 10^3/uL (4.4-10.8)
[2019-06-19 05:03] LABS: Eosinophils % (auto) 1.2 % (0.0-7.0); Hematocrit 31.5 % (41.0-53.0); Hemoglobin 11.5 g/dL (13.5-17.5); Mean Corpuscular Hemoglobin 35.8 pg (28.0-32.0); Mean Corpuscular Hgb Conc. 36.5 g/dL (32.0-36.0); Monocytes % (auto) 3.7 % (0.0-12.0); Neutrophils # (auto) 8.4 uL; Neutrophils % (auto) 84.9 % (37.0-80.0); Nucleated Red Blood Cells % 0.9 %; Platelet Count (auto) 230 10^3/uL (140-450); Red Blood Cells 3.22 10^6/uL (4.5-5.90)
[2019-06-19 05:19] LABS: INR 1.16 (0.9-1.15)
[2019-06-19 05:23] LABS: Potassium 3.7 mmol/L (3.5-5.1)
[2019-06-19 05:27] LABS: Albumin 2.5 g/dL (3.4-5.0); BUN/Creatinine Ratio 19.7; Calcium 7.7 mg/dL (8.5-10.1)
[2019-06-19] MEDS: LEVOTHYROXINE SODIUM 25 MCG TAB PO SCH (05:33)
[2019-06-19 05:36] LABS: Total Protein 5.4 g/dL (6.4-8.2)
--- NOTE | 2019-06-19 08:05 | NUR ---
MD Dr. Calderon at bedside updated on patient condition with no new orders received. MD spoke to family regarding plan of care and questions/concerns answered by MD. Will continue to monitor patient closely.
[2019-06-19] MEDS: cefTRIAXone 1GM/50ML D5W 50 ML IV SCH (09:14)
[2019-06-19] MEDS: OMEPRAZOLE 20MG/10ML ORAL SUSP GT SCH (09:36)
[2019-06-19] MEDS: DIGOXIN (250MCG/ML) 2 ML AMPULE IV SCH (09:37)
[2019-06-19] MEDS: AZITHROMYCIN 500MG/ 250ML 250 ML IV SCH (09:37)
[2019-06-19] MEDS: APIXABAN 2.5 MG TAB NG SCH ×2 (09:38→21:34)
[2019-06-19] MEDS: HCTZ 25 MG TAB PO SCH (09:39)
[2019-06-19] MEDS: METOPROLOL TARTRATE 25 MG TAB PO SCH ×2 (09:39→21:35)
--- NOTE | 2019-06-19 10:00 | NUR ---
MD Dr. Cary at bedside updated on patient condition with no new orders at this time. states " Once patient is alert,awake and following commands may CPAP."
--- NOTE | 2019-06-19 11:20 | NUR ---
NUTRITION CONSULT/ASSESSMENT NOTES Please refer to link notes of nutrition screen form filed under the intervention section of the plan of care for further details. Est. Needs: 1550 kcal to 1900 kcal (25-30 kcal/kgBW), 63 gms to 76 gms pro (1.0-1.2 gms/kgBW). Will continue to monitor pertinent labs and reassess nutrient need prn Thank you for this consult. Addendum: 06/19/19 at [address] Amended: Links added.
--- NOTE | 2019-06-19 12:00 | NUR ---
AMIODARONE GTT/ Amiodarone gtt turned off secondary to patients heart rate in the 50's. Paged Dr. Kam to notify of changes awaiting for MD to call back.
--- NOTE | 2019-06-19 12:15 | NUR ---
WOUND CARE NOTE: IN TO SEE PATIENT AT THIS TIME FOR SKIN INTEGRITY. PATIENT ADMITTED TO [facility] WITH DIAGNOSIS OF CEREBRAL INFARCTION, METABOLIC ENCEPHALOPATHY. CURRENT GIANNA SCORE IS 12. PATIENT IS INTUBATED, NON RESPONSIVE. HE IS ASSESSED WOUND FREE AT THIS TIME, WITH PINK, BLANCHABLE BONY PROMINENCES. PATIENT WOULD BENEFIT FROM THE FOLLOWING: SKIN/WOUND CARE PLAN, DIETARY CONSULT, FREQUENT TURN SCHEDULE Q 2 HOURS, PRN CONDITION PERMITS, WITH PRESSURE REDISTRIBUTION USING PILLOWS/WEDGES, BID/PRN APPLICATION WITH MOISTURE BARRIER CREAML OPTIFOAM GENTLE SACRAL DRESSING, CONTINUED MONITORING BY WOUND CARE TEAM.
--- NOTE | 2019-06-19 12:40 | NUR ---
MD Dr. Kam at bedside updated on patient condition with new orders regarding Amiodarone gtt. MD aware that Amiodarone gtt turned off at 1200 secondary to patient sustaining heart rate in the 50's.Will continue to monitor patient closely.
[2019-06-19] MEDS: MIDAZOLAM DRIP 50 mg/50mL 50 ML IV SCH (15:10)
[2019-06-19] MEDS: NOREPINEPHRINE 8 MG/250ML KIT 250 ML IV SCH (15:10)
[2019-06-19] MEDS ORDERED: CLINIMIX PER PHARMACY 0 ML IV SCH (15:30)
--- NOTE | 2019-06-19 19:45 | NUR ---
OPEN SHIFT REPORT RECEIVED REPORT. FULL CODE ICU PATIENT. INTUBATED BUT OFF SEDATED SINCE 06/18 @1300. FOLLOWING SIMPLE COMMANDS AND YES/NO QUESTIONS. AFIB 80'S SBP 120-130'S OFF LEVO SINCE 06/18. TEMPERATURE 100.0 PLACED ICE PACKS TO COOL. PT DOES NOT COMPLAIN OF PAIN. OGT CLAMPED, AUSCULTATED AND ASPIRATED FOR CORRECT PLACEMENT. TRENT PATENT DRAINING CLOUDY YELLOW URINE. FOR MORE INFORMATION SEE INTERVENTIONS. FAMILY AT BEDSIDE AND UPDATED ON POC. BED LOCKED AND IN LOWEST POSITION. ALL FALL AND SAFETY PRECAUTIONS IN PLACE.
[2019-06-19] MEDS ORDERED: DEXTROSE (50%) 50ML SYRG IV SCH (20:00)
[2019-06-19] MEDS: CLINIMIX PER PHARMACY IV NR (20:37)
[2019-06-19] MEDS: AMIODARONE HCL 200 MG TAB PO SCH (21:34)
[2019-06-20] VITALS (48 sets, daily range): BP systolic 121–154; BP diastolic 61–90
--- NOTE | 2019-06-20 01:05 | NUR ---
BATH GIVEN FULL BED BATH GIVEN WITH CHG WIPES, PATIENT TOLERATED WELL. REASSESSED SKIN AND NO NEW BREAK DOWN NOTED.
[2019-06-20] MEDS: PHENYLEPHRINE INJ 20 MG in SODIUM CHL 0.9% 250 ML IV SCH ×3 (03:08→19:48)
[2019-06-20 04:32] LABS: Basophils # (auto) 0 uL; Basophils % (auto) 0.4 % (0.0-2.0); Eosinophils # (auto) 0.1 uL; Hemoglobin 11.7 g/dL (13.5-17.5); Lymphocytes # (auto) 0.9 uL
[2019-06-20 04:36] LABS: Eosinophils % (auto) 0.9 % (0.0-7.0); Hematocrit 32.8 % (41.0-53.0); Lymphocytes % (auto) 10.2 % (10.0-50.0); Mean Corpuscular Hemoglobin 35.3 pg (28.0-32.0); Mean Corpuscular Hgb Conc. 35.8 g/dL (32.0-36.0); Mean Corpuscular Volume 98.7 fL (80.0-100.0); Monocytes # (auto) 0.6 uL; Monocytes % (auto) 6.3 % (0.0-12.0); Neutrophils # (auto) 7.3 uL; Neutrophils % (auto) 82.2 % (37.0-80.0); Nucleated Red Blood Cells % 2.3 %; Platelet Count (auto) 236 10^3/uL (140-450); Red Blood Cells 3.33 10^6/uL (4.5-5.90); Red Cell Distribution Width 13.7 % (11.8-14.3); White Blood Cell 8.8 10^3/uL (4.4-10.8)
[2019-06-20 05:35] LABS: Potassium 3.5 mmol/L (3.5-5.1)
[2019-06-20 05:40] LABS: Albumin 2.6 g/dL (3.4-5.0); Bilirubin, Total 1.2 mg/dL (0.2-1.0); Calcium 7.7 mg/dL (8.5-10.1); Magnesium 2.1 mg/dL (1.6-2.6); Total Protein 5.8 g/dL (6.4-8.2)
[2019-06-20] MEDS: InsuLIN REG 1unit/0.01ml Soln (100units/ml) SC SCH ×4 (06:00→18:00)
[2019-06-20] MEDS: LEVALBUTEROL HCL 1.25 MG/3 ML NEB NEB SCH ×2 (06:00→11:50)
[2019-06-20 06:11] LABS: Phosphorus 2.7 mg/dL (2.5-4.90); Pre Albumin 10.5 mg/dL (20.0-40.0)
[2019-06-20] MEDS: LEVOTHYROXINE SODIUM 25 MCG TAB PO SCH (06:33)
[2019-06-20] MEDS: ACCU-CHEK COMFORT CURVE STRIP VI SCH ×4 (06:34→18:28)
--- NOTE | 2019-06-20 07:24 | NUR ---
END OF SHIFT GAVE REPORT OF FULL CODE ICU PATIENT TO DAY SHIFT RN. VSS. ALL FALL AND SAFETY PRECAUTIONS IN PLACE.
--- NOTE | 2019-06-20 07:55 | NUR ---
MD Dr. Calderon at bedside updated on patient condition with no new orders at this time.
--- NOTE | 2019-06-20 08:00 | NUR ---
OPENING NOTE Received patient on mechanical ventilator on NO sedation. Patient alert and awake, traces, answers to yes/no questions by noding head, positive gag/cough reflex, and follows simple commands. A-fib on bedside monitor in the 70's, pulses palpable on upper/lower extremities with no edema observed. OG tube checked and verified via air bolus: clamped. Abdomen soft nontender, non distended, bowel sounds present in all quadrants with last bowel movement 06/13/2019 per NOC nurse report. Caldera catheter draining to gravity clear yellow urine. Right IJ(TLC): good blood return and flushes easily infusing Clindimx at 42ml/hr. Skin intact. SCD's on. Call light with in reach and bed at lowest position. Will continue to monitor patient closely.
--- NOTE | 2019-06-20 08:45 | NUR ---
FAMILY Patients granddaughter at bedside.
[2019-06-20] MEDS: cefTRIAXone 1GM/50ML D5W 50 ML IV SCH (08:47)
--- NOTE | 2019-06-20 09:00 | NUR ---
FAMILY Granddaughter has left.
--- NOTE | 2019-06-20 09:13 | NUR ---
Respiratory note: CPAP TRIAL INITIATED, HR 70, RR 20, SPO2 96%, BP 127/68. ABG TO FOLLOW
--- NOTE | 2019-06-20 09:13 | NUR ---
RESPIRATORY RT Heidi at bedside and placed patient on CPAP mode sating 96% will continue to monitor patient closely.
--- NOTE | 2019-06-20 09:25 | NUR ---
FAMILY Patients grandson at bedside.
[2019-06-20] MEDS: AZITHROMYCIN 500MG/ 250ML 250 ML IV SCH (10:06)
[2019-06-20] MEDS: HCTZ 25 MG TAB PO SCH (10:07)
[2019-06-20] MEDS: APIXABAN 2.5 MG TAB NG SCH ×2 (10:07→21:04)
[2019-06-20] MEDS: METOPROLOL TARTRATE 25 MG TAB PO SCH ×2 (10:08→21:04)
[2019-06-20] MEDS: AMIODARONE HCL 200 MG TAB PO SCH ×2 (10:09→21:32)
[2019-06-20] MEDS: OMEPRAZOLE 20MG/10ML ORAL SUSP GT SCH (10:10)
--- NOTE | 2019-06-20 12:30 | NUR ---
MD Dr. Kwan at bedside aware of patient on CPAP and post CPAP ABG with new orders to extubate patient. This RN to input oders into system. RT Gordon will be informed.
--- NOTE | 2019-06-20 12:48 | NUR ---
RESPIRATORY RT at bedside and extubated patient and placed on 30% cool mist sating in the 98%. Patient tolerated well.
[2019-06-20 13:14] LABS: Hepatitis A Ab IgM Negative; Hepatitis B Core IgM Negative; Hepatitis B Surface Antigen Negative (Negative); Hepatitis C Antibody Negative (Negative)
[2019-06-20] MEDS: NOREPINEPHRINE 8 MG/250ML KIT 250 ML IV SCH (15:10)
[2019-06-20] MEDS: MIDAZOLAM DRIP 50 mg/50mL 50 ML IV SCH (15:10)
--- NOTE | 2019-06-20 15:34 | NUR ---
Respiratory note: TOOK PATIENT OFF COOL MIST AEROSOL AND PLACED ON 3L N/C. SPO2 95%, HR 66, RR 26.
--- NOTE | 2019-06-20 15:35 | NUR ---
RESPIRATORY RT Heidi at bedside and placed patient on nasal cannula t 3 liters sating 94%. Will continue to monitor patient closely.
--- NOTE | 2019-06-20 16:40 | NUR ---
Assessment Pt is a 74 yr old male on vent. Pts Daughter, Kendra, and grandson, Andrew, were in the room with the pt and answered questions. Pt lives with them both and are both the pts emergency contacts and can be reached at: Kendra:[phone]. Andrew: [phone]. Prior to admit, pt ambulated with the assistance of a walker. Pts family Pt received assistance from family with cooking, cleaning. Pts Primary is Dr. Zavala. Pt does not have an AD but is interested, SW provided POA paperwork to the family. SW will assess for further needs and d/c plan closer to d/c Addendum: 06/20/19 at 1641 by MOHSEN SANCHEZ Amended: Links added.
[2019-06-20] MEDS ORDERED: TPN PER PHARMACY 0 ML IV SCH (17:00)
--- NOTE | 2019-06-20 19:30 | NUR ---
REPORT RECEIVED, ASSUMED CARE.
[2019-06-20] MEDS: CLINIMIX PER PHARMACY IV NR (19:53)
[2019-06-20] MEDS ORDERED: TPN PER PHARMACY IV NR ×9 (20:00)
--- NOTE | 2019-06-20 20:20 | NUR ---
PT FAMILY @ BEDSIDE, PT APHASIC AT THIS TIME, FOLLOWS COMMANDS. POC EXPLAINED TO BOTH FAMILY AND PT, BOTH RESPONDED WITH UNDERSTANDING AND COMPLIANCE. PT FAMILY REQUESTING PHYSICAL THERAPY AND I RECOMMEND A SWALLOW EVALUATION. IF PT MD'S COME IN TONIGHT I NOTIFY THEM. IF NOT I WILL PASS ON IN REPORT.
--- NOTE | 2019-06-20 21:28 | NUR ---
NOTIFIED HOSPITALIST PT HASN'T HAD BM SINCE . OBTAINED NEW ORDERS, WILL CONT TO MONITOR AND GIVE IN REPORT.
[2019-06-20] MEDS ORDERED: FLEET ENEMA(ADULT) 135 ML PR ONE (21:30)
--- NOTE | 2019-06-20 21:33 | NUR ---
HELD AMIODARONE AND ONLY GAVE 25 MG OF LOPRESSOR DUE TO PT LOW HR. PT HEART RATE DIPS DOWN INTO LOW 50'S BUT DOES NOT SUSTAIN. WILL CONT TO MONITOR AND GIVE IN REPORT.
[2019-06-20] MEDS: DOCUSATE SOD 100 MG CAP PO SCH (21:45)
--- NOTE | 2019-06-20 23:39 | NUR ---
PT HAD LG BM HARD BROWN Patient bathe/linen change Patient given complete bath. Skin integrity assessed for any changes. Linens changed. Patient repositioned for comfort.
[2019-06-21] VITALS (19 sets, daily range): BP systolic 123–169; BP diastolic 51–94
[2019-06-21] MEDS: ACCU-CHEK COMFORT CURVE STRIP VI SCH ×5 (00:04→23:38)
[2019-06-21] MEDS: PHENYLEPHRINE INJ 20 MG in SODIUM CHL 0.9% 250 ML IV SCH ×2 (00:04→12:28)
[2019-06-21 04:41] LABS: Basophils # (auto) 0.1 uL; Basophils % (auto) 0.8 % (0.0-2.0); Eosinophils # (auto) 0.1 uL; Eosinophils % (auto) 1.3 % (0.0-7.0); Hemoglobin 12.3 g/dL (13.5-17.5); Red Cell Distribution Width 13.5 % (11.8-14.3)
[2019-06-21 04:44] LABS: Lymphocytes # (auto) 0.7 uL; Lymphocytes % (auto) 7.5 % (10.0-50.0); Mean Corpuscular Hemoglobin 35.2 pg (28.0-32.0); Mean Corpuscular Hgb Conc. 36.1 g/dL (32.0-36.0); Mean Corpuscular Volume 97.5 fL (80.0-100.0); Monocytes # (auto) 0.9 uL; Neutrophils # (auto) 7.6 uL; Neutrophils % (auto) 80.4 % (37.0-80.0); Nucleated Red Blood Cells % 0.9 %; Platelet Count (auto) 236 10^3/uL (140-450); Red Blood Cells 3.48 10^6/uL (4.5-5.90); White Blood Cell 9.4 10^3/uL (4.4-10.8)
[2019-06-21 05:10] LABS: Potassium 3.5 mmol/L (3.5-5.1)
[2019-06-21 05:17] LABS: Albumin 2.5 g/dL (3.4-5.0); BUN/Creatinine Ratio 26.1; Bilirubin, Total 1.1 mg/dL (0.2-1.0); Phosphorus 2.4 mg/dL (2.5-4.90); Total Protein 6.3 g/dL (6.4-8.2)
[2019-06-21] MEDS: InsuLIN REG 1unit/0.01ml Soln (100units/ml) SC SCH ×5 (06:00→23:38)
[2019-06-21] MEDS: LEVOTHYROXINE SODIUM 25 MCG TAB PO SCH (06:14)
[2019-06-21] MEDS: LEVALBUTEROL HCL 1.25 MG/3 ML NEB NEB SCH ×3 (06:52→18:56)
[2019-06-21] MEDS: cefTRIAXone 1GM/50ML D5W 50 ML IV SCH (09:07)
[2019-06-21] MEDS: DOCUSATE SOD 100 MG CAP PO SCH ×2 (10:00→20:39)
[2019-06-21] MEDS: HCTZ 25 MG TAB PO SCH (10:00)
[2019-06-21] MEDS ORDERED: DIGOXIN (250MCG/ML) 2 ML AMPULE IV SCH (10:00)
[2019-06-21] MEDS: AMIODARONE HCL 200 MG TAB PO SCH ×2 (10:11→20:40)
[2019-06-21] MEDS: APIXABAN 2.5 MG TAB NG SCH ×2 (10:13→20:39)
[2019-06-21] MEDS: METOPROLOL TARTRATE 25 MG TAB PO SCH ×2 (10:13→20:40)
[2019-06-21] MEDS: AZITHROMYCIN 500MG/ 250ML 250 ML IV SCH (10:14)
[2019-06-21] MEDS: OMEPRAZOLE 20MG/10ML ORAL SUSP GT SCH (10:14)
--- NOTE | 2019-06-21 11:31 | NUR ---
Nutrition Consult and Follow-up Notes Wt.: 62.0 kg today. Pt's successfully extubated yesterday, on oxygen via nasal cannula, asleep, no signs of distress noted earlier, remains NPO, currently on PN support @ 42 ml/hr providing 1050 kcal, 50 gms pro, 850 NPCs. Pt with inadequate PN support d/t low initiation rate delivery of less concentrated formula aeb current PN infusion meets 55% to 68% of est caloric needs and 66% to 79% of est protein needs. Noted pt's to receive tonight another PN support @ 50 ml/hr providing 1260 kcal, 60 gms pro,1020 NPCs. for active Wound consult. Est. Needs: 1550 kcal to 1900 kcal (25-30 kcal/kgBW), 63 gms to 76 gms pro (1.0-1.2 gms/kgBW). Will continue to monitor pertinent labs and reassess nutrient need prn Labs: Gluc 113 H, Cl 108 H, BUN 36 H, Cr 1.38 H, Ca 8.0 L, Phos 2.4 L, AST 115 H, ALT 451 H, Tpro 6.3 L, Alb 2.5 L; Prealb 10.5 L, Trig 126 wnl Skin: Hood scale 14, mod risk, pt's coccyx, sacrum blanchable redness per gynecologist. Pls refer to latest aircraft mechanic structures's notes for further details re: tx plans GI: Pt had 1 BM this morning per gynecologist. PES: Partially resolved: Increased nutrient needs r/t acute/chronic medical condition aeb intubated, sedated, mod hypoalbuminemia,NPO. Altered nutrition related lab values r/t current/chronic medical condition aeb elev. renal labs, LFTs hypocalcemia and mod hypoalbuminemia Will continue to monitor NPO status, PN tolerance, skin status, pertinent labs and weight trend. F/u in 2 to 3 days. Rec.: 1.) If still NPO, with PN support, consider gradual increase on calories and protein to meet at least 75% of est nutrient needs. 2.) Advance gradually to oral diet when medically appropriate. 3.) Refer to RD for further nutrition educ. and weight monitoring upon discharge. 4.) Continue current plan of care. Thank you for this consult
--- NOTE | 2019-06-21 12:15 | NUR ---
SWALLOW EVALUATION Speech therapist rAleth at bedside for a swallow evaluation.
--- NOTE | 2019-06-21 12:16 | NUR ---
SWALLOW EVALUATED. FAMILY PRESENT. PATIENT HAS NO TEETH OR DENTURES. NURSING REPORTS COUGHING ON THIN LIQUIDS. PATIENT ABLE TO TOLERATE PUREE DIET TEXTURE WITH NECTAR THICKENED LIQUIDS WITH NO OVERT SIGNS OR SYMPTOMS OF ASPIRATION. NURSING NOTIFIED.
--- NOTE | 2019-06-21 12:30 | NUR ---
PHYSICAL THERAPY Physical therapist Kit at bedside to evaluate patient. Patient was able to walk about 100ft very unsteady and walks with head looking down and far from walker. Kit and this RN educated patient and patients daughter, daughter verbalized understanding. Patient in chair after walk.
--- NOTE | 2019-06-21 13:30 | NUR ---
PHYSICAL THERAPY Physical therapist Kit at bedside and assisted patient back to bed. Patient tolerated well. Will continue to monitor patient closely.
--- NOTE | 2019-06-21 14:00 | NUR ---
RESPIRATORY Placed patient on room air sating 98% patient tolerating well. Will continue to monitor patient.
--- NOTE | 2019-06-21 14:25 | NUR ---
BED ASSIGNMENT Received bed assignment 264 with Juanjose RN. Will call to given report. Will notidy family that patient will be transferred to [facility].
--- NOTE | 2019-06-21 14:45 | NUR ---
FAMILY Patients grandson Andrew aware of transfer to [facility] room 264.
--- NOTE | 2019-06-21 15:00 | NUR ---
REPORT Report given to Juanjose RN who will continue plan of care once patient arrives to room 264.
[2019-06-21] MEDS: NOREPINEPHRINE 8 MG/250ML KIT 250 ML IV SCH (15:10)
--- NOTE | 2019-06-21 15:15 | NUR ---
Transfer from ICU to [facility] PHIL RUDD transferred to [facility] via hospital bed on aircraft refueler. Patient transferred to bed, connected to unit monitoring. Patient oriented to MARTELL MCGOWAN RN primary RN, unit, room, bed, and unit policies regarding patient care and visiting hours. All questions and concerns addressed, patient verbalized understanding. His granddaughter at the bedside. Assessment done, pupil equal both eyes reac to light, follow direction but still weak, slow speech and clear, able to tell me his name and and know his granddaughter name. Patient sitting up on the bed, room air, O2 saturation 95-96%, BP 150/78 mmHg, RR 24, HR 79 with A. Fib, BT 97.3 F. Connected with SCD.
--- NOTE | 2019-06-21 15:15 | NUR ---
TRANSFERRED Patient transferred to [facility] accompanied by Kelton PENNY and Arcelia RN patient connected to portable classroom monitor. Family at bedside.
--- NOTE | 2019-06-21 15:50 | NUR ---
Patient sitting up on the bed, his families feeding him with juice mixed with [place] thickened. No aspiration noted. Will continue to monitor and care.
[2019-06-21] MEDS ORDERED: TPN PER PHARMACY IV NR ×8 (20:00)
--- NOTE | 2019-06-21 20:00 | NUR ---
SHIFT OPENING NOTE RECEIVED PATIENT AWAKE, ALERT AND ORIENTED X2. CONFUSED. NO SOB, DISTRESS OR PAIN NOTED. ON ROOM AIR POX 97%. TRENT CATH IN PLACE DRAINING URINE TO GRAVITY. TPN INFUSING THROUGH RIJ 3 LUMEN CENTRAL LINE. PHYSICAL ASSESSMENT COMPLETED, SEE INTERVENTIONS. INSTRUCTED ON POC AND TO CALL FOR ASSIST NEEDED. WILL CLOSELY MONITOR.
--- NOTE | 2019-06-21 21:00 | NUR ---
FAMILY AT BEDSIDE FEEDING HIM DINNER
--- NOTE | 2019-06-21 22:40 | NUR ---
HYGIENE PATIENT NOTED TO HAVE HAD A MODERATE SIZED LIQUID BM. YUNG CARE PERFORMED. FULL BED BATH PERFORMED WITH CHG WIPES. GOWN CHANGED. PARTIAL LINEN CHANGED. PATIENT REPOSITIONED FOR COMFORT. TOLERATED IT WELL.
--- NOTE | 2019-06-21 22:45 | NUR ---
CENTRAL Line Dressing Changes CENTRAL line dressing change done with a sterile technique. Cleansed with chloraprep scrub/betadine. Stat lock, and bio-patch as available. Occlusive dressing applied.
[2019-06-22] VITALS (11 sets, daily range): BP systolic 107–147; BP diastolic 63–90
[2019-06-22] MEDS: LEVALBUTEROL HCL 1.25 MG/3 ML NEB NEB SCH ×4 (00:10→18:24)
[2019-06-22] MEDS: InsuLIN REG 1unit/0.01ml Soln (100units/ml) SC SCH ×4 (06:00→23:38)
[2019-06-22 06:20] LABS: Basophils # (auto) 0.1 uL; Hemoglobin 12.1 g/dL (13.5-17.5); Nucleated Red Blood Cells % 0.1 %
[2019-06-22 06:26] LABS: Eosinophils # (auto) 0.2 uL; Eosinophils % (auto) 2.2 % (0.0-7.0); Hematocrit 33.7 % (41.0-53.0); Lymphocytes # (auto) 1.2 uL; Lymphocytes % (auto) 11.8 % (10.0-50.0); Mean Corpuscular Hgb Conc. 35.9 g/dL (32.0-36.0); Mean Corpuscular Volume 97.5 fL (80.0-100.0); Monocytes # (auto) 1.3 uL; Monocytes % (auto) 12.7 % (0.0-12.0); Neutrophils # (auto) 7.4 uL; Neutrophils % (auto) 72.3 % (37.0-80.0); Platelet Count (auto) 237 10^3/uL (140-450); Red Blood Cells 3.45 10^6/uL (4.5-5.90); Red Cell Distribution Width 13.8 % (11.8-14.3); White Blood Cell 10.3 10^3/uL (4.4-10.8)
[2019-06-22] MEDS: ACCU-CHEK COMFORT CURVE STRIP VI SCH ×4 (06:28→23:38)
[2019-06-22 06:29] LABS: Albumin 2.5 g/dL (3.4-5.0); Calcium 8.2 mg/dL (8.5-10.1)
[2019-06-22 06:32] LABS: BUN/Creatinine Ratio 26.5; Phosphorus 3.1 mg/dL (2.5-4.90); Total Protein 6.2 g/dL (6.4-8.2)
[2019-06-22] MEDS: LEVOTHYROXINE SODIUM 25 MCG TAB PO SCH (06:41)
--- NOTE | 2019-06-22 06:54 | NUR ---
END OF SHIFT PATIENT IS QUIETLY LAYING IN BED WITH EYES CLOSED. NO SOB, OR DISTRESS NOTED. ON ROOM AIR. VS STABLE. WILL GIVE REPORT AND ENDORSE CARE TO THE DAY SHIFT RN.
--- NOTE | 2019-06-22 07:50 | NUR ---
Opening Shift Note Assumed care of patient, awake and alert, able to tell me his name and and place right. No S/S of distress/SOB or pain. Instructed on POC and to call for assist PRN, will continue to monitor for changes Q1hr and PRN. Position changed for breakfast.
--- NOTE | 2019-06-22 08:56 | NUR ---
Patient had breakfast around 25%, no sign of aspiration noted, need max assist for feeding and sitting up when eating. Will continue to monitor and care, patient stated that he wants to go the restroom for bowel movement, bedpan provided.
--- NOTE | 2019-06-22 09:06 | NUR ---
Dr. Zaldivar at the bedside, plan of care discussed with patient, received order to transfer to Tele.
[2019-06-22] MEDS: OMEPRAZOLE 20MG/10ML ORAL SUSP GT SCH (09:34)
[2019-06-22] MEDS: AZITHROMYCIN 500MG/ 250ML 250 ML IV SCH (09:34)
[2019-06-22] MEDS: cefTRIAXone 1GM/50ML D5W 50 ML IV SCH (09:34)
[2019-06-22] MEDS: HCTZ 25 MG TAB PO SCH (09:35)
[2019-06-22] MEDS: AMIODARONE HCL 200 MG TAB PO SCH (09:35)
[2019-06-22] MEDS: APIXABAN 2.5 MG TAB NG SCH ×2 (09:35→21:27)
[2019-06-22] MEDS: METOPROLOL TARTRATE 25 MG TAB PO SCH (09:36)
[2019-06-22] MEDS: DOCUSATE SOD 100 MG CAP PO SCH ×2 (09:36→21:28)
--- NOTE | 2019-06-22 10:00 | NUR ---
Pt unable to sign appeal discharge form due to confusion.
--- NOTE | 2019-06-22 10:15 | NUR ---
Ella CLASSIFIED ADVERTISING CLERK for Dr. Kam at the bedside, plan of care discussed with patient plan for Left heart cath possible today, patient will discussed with his family and will let us know.
[2019-06-22] MEDS ORDERED: METOCLOPRAMIDE HCL 5MG/ml INJ 2ml VIAL IV ONE (10:45)
--- NOTE | 2019-06-22 11:15 | NUR ---
PT at the bedside, patient sitting on the chair, his grandson at the bedside.
--- NOTE | 2019-06-22 11:25 | NUR ---
Staff for Life vest the the bedside.
--- NOTE | 2019-06-22 12:35 | NUR ---
Patient went to candlemaking laborer at this time.
[2019-06-22] MEDS ORDERED: ANGIOMAX 250 MG VIAL IV ONE (13:46)
[2019-06-22] MEDS ORDERED: fentaNYL CITRATE 100 MCG/2 ML VL ONE (13:46)
[2019-06-22] MEDS ORDERED: MIDAZOLAM HCL 1MG/1ML-2 ML VIAL ONE (13:46)
[2019-06-22] MEDS ORDERED: SODIUM CHL 0.9% 0 ML ONE (13:46)
[2019-06-22] MEDS ORDERED: LIDOCAINE 2%HCL (LOCAL ANESTH.) INJ 20ML MDV ONE (14:17)
[2019-06-22] MEDS: NOREPINEPHRINE 8 MG/250ML KIT 250 ML IV SCH (15:10)
--- NOTE | 2019-06-22 15:45 | NUR ---
Patient came back from mill labor supervisor, his grandson at the bedside, puncture site at right groin, covered with gauze and tegaderm, bruising around the puncture site. No hematoma noted, patient need to keep right leg straight for 6 hours. His family made aware.
--- NOTE | 2019-06-22 16:18 | NUR ---
Paged Dr. Kam, received order for Haldol, will continue to monitor and care.
[2019-06-22] MEDS ORDERED: HALOPERIDOL LACTATE 5 MG/ML INJ VIAL IV ONE (16:30)
--- NOTE | 2019-06-22 16:53 | NUR ---
Haldol given, patient still moving a lot, grandson at the bedside and requested for sitter because patient needs to keep right leg straight for 6 hours and still confused trying to pulling 3 lumen. CN made aware, will try to get sitter and call back.
--- NOTE | 2019-06-22 18:15 | NUR ---
Family at the bedside, right groin checked at this time, no bleeding or hematoma noted, just bruising. Will continue to monitor and care.
--- NOTE | 2019-06-22 18:25 | NUR ---
RT NOTE PT WAS SEEN BY RT FOR [facility]N TX. PT TOLERATES WELL VIAS MASK. NO ADVERSE REACTION NOTED. VISITOR AT BEDSIDE. CONT ORDERED. Addendum: 06/22/19 at 1826 by Damaris Adams RT Amended: Links added.
[2019-06-22] MEDS ORDERED: TPN PER PHARMACY IV NR ×7 (20:00)
--- NOTE | 2019-06-22 20:00 | NUR ---
SHIFT OPENING NOTE RECEIVED PATIENT AWAKE, ALERT AND ORIENTED X2. NO SOB, DISTRESS OR PAIN NOTED. ON ROOM AIR POX 97%. STATUS POST ANGIOGRAM. LAYING FLAT IN BED UNTIL 10PM. RIGHT GROIN DRESSING IS HAS SMALL AMOUNT OF BLOOD ON IT. ECCHYMOSIS AROUND INSERTION SITE WITH SMALL HEMATOMA NOTED. AREA CIRCLED. SAND BAG PLACED ON SITE. TRENT CATH IN PLACE DRAINING URINE TO GRAVITY. TPN INFUSING THROUGH RIJ 3 LUMEN CENTRAL LINE. PHYSICAL ASSESSMENT COMPLETED, SEE INTERVENTIONS. INSTRUCTED ON POC AND TO CALL FOR ASSIST NEEDED. WILL CLOSELY MONITOR.
[2019-06-22] MEDS ORDERED: HALOPERIDOL LACTATE 5 MG/ML INJ VIAL IM PRN (20:45)
--- NOTE | 2019-06-22 21:00 | NUR ---
DR. GALAN AT BEDSIDE NEW ORDERS OBTAINED FOR HALDOL 2MG IM Q8 FOR AGITATION.
[2019-06-22] MEDS: SACUBITRIL-VALSARTAN 24mg/26mg TAB PO SCH (21:46)
[2019-06-22] MEDS: ACETAMINOPHEN 325 MG TAB PO PRN (21:47)
[2019-06-22] MEDS: TEMAZEPAM 15 MG CAP PO PRN (23:06)
[2019-06-23] VITALS: BP 131/59
--- NOTE | 2019-06-23 00:03 | NUR ---
RT NOTE PT WAS SEEN BY RT FOR HHN TX. PT TOLERATES WELL VIA MASK. NO ADVERSE REACTION NOTED. CONT ORDERED Addendum: 06/23/19 at 0003 by Damaris Adams RT Amended: Links added.
--- NOTE | 2019-06-23 01:30 | NUR ---
INCREASE IN ECCHYMOSIS NOTED TO RIGHT GROIN AREA HEMATOMA INCREASING IN SIZE. PATIENT IS CONFUSED AND CONTINUES TO MOVE RIGHT LEG. SANDBAG REMOVED AND ICE PACK PLACED TO RIGHT GROIN SITE. SITTER AT BEDSIDE WATCHING PATIENT. WILL CONTINUE TO CLOSELY MONITOR.
[2019-06-23] MEDS: ACCU-CHEK COMFORT CURVE STRIP VI SCH ×3 (05:33→18:11)
[2019-06-23] MEDS: InsuLIN REG 1unit/0.01ml Soln (100units/ml) SC SCH ×3 (05:33→18:11)
[2019-06-23 05:55] VITALS: BP 148/74
[2019-06-23 06:04] LABS: Basophils # (auto) 0.1 uL; Basophils % (auto) 0.6 % (0.0-2.0); Eosinophils # (auto) 0.2 uL; Eosinophils % (auto) 1.5 % (0.0-7.0); Hemoglobin 11.1 g/dL (13.5-17.5); Lymphocytes # (auto) 1.3 uL; Lymphocytes % (auto) 13.1 % (10.0-50.0); Mean Corpuscular Hemoglobin 35.5 pg (28.0-32.0); Mean Corpuscular Volume 98.6 fL (80.0-100.0); Monocytes # (auto) 1.2 uL; Monocytes % (auto) 11.4 % (0.0-12.0); Neutrophils # (auto) 7.5 uL; Neutrophils % (auto) 73.4 % (37.0-80.0); Platelet Count (auto) 218 10^3/uL (140-450); Red Blood Cells 3.14 10^6/uL (4.5-5.90); Red Cell Distribution Width 14.1 % (11.8-14.3); White Blood Cell 10.2 10^3/uL (4.4-10.8)
[2019-06-23] MEDS: LEVALBUTEROL HCL 1.25 MG/3 ML NEB NEB SCH ×4 (06:10→18:34)
[2019-06-23 06:23] LABS: Albumin 2.6 g/dL (3.4-5.0); Potassium 3.8 mmol/L (3.5-5.1)
[2019-06-23] MEDS: LEVOTHYROXINE SODIUM 25 MCG TAB PO SCH (06:25)
[2019-06-23 06:26] LABS: BUN/Creatinine Ratio 23.1; Bilirubin, Total 0.9 mg/dL (0.2-1.0); Phosphorus 3.2 mg/dL (2.5-4.90); Total Protein 6.2 g/dL (6.4-8.2)
--- NOTE | 2019-06-23 07:45 | NUR ---
REPORT GIVEN TO PRATIK DANIEL IN TELE
--- NOTE | 2019-06-23 07:46 | NUR ---
PATIENT TRANSPORTED TO ROOM 294B VIA BED. ALL BELONGINGS TAKEN WITH PATIENT.
--- NOTE | 2019-06-23 07:49 | NUR ---
PT TRANSFERRED FROM [facility] Assumed care of patient, awake, alert and oriented x2. No S/S of distress/SOB. PT denies having any pain at this time and shows no s/s of pain. Bed in lowest and locked position with side rails upx2 and call light in reach. Sitter at bedside. Instructed on POC and to call for assist PRN, will continue to monitor for changes Q1hr and PRN.
--- NOTE | 2019-06-23 08:30 | NUR ---
MD MARK AT PT BEDSIDE. MD NOTIFIED OF PT HEMATOMA AND MD IS AWARE. NO NEW ORDERS RECEIVED AT THIS TIME.
[2019-06-23 09:00] VITALS: BP 108/69
[2019-06-23] MEDS: METOPROLOL SUCCINATE XL 50 MG TAB PO SCH (10:00)
[2019-06-23] MEDS: APIXABAN 2.5 MG TAB NG SCH ×2 (10:19→22:15)
[2019-06-23] MEDS: cefTRIAXone 1GM/50ML D5W 50 ML IV SCH (10:19)
[2019-06-23] MEDS: DOCUSATE SOD 100 MG CAP PO SCH ×2 (10:20→22:15)
[2019-06-23] MEDS: SACUBITRIL-VALSARTAN 24mg/26mg TAB PO SCH ×2 (10:20→22:15)
[2019-06-23] MEDS: OMEPRAZOLE 20MG/10ML ORAL SUSP GT SCH (11:35)
[2019-06-23] MEDS: FLUCONAZOLE 200MG/100ML 100 ML IV SCH (11:44)
[2019-06-23 12:00] VITALS: BP 144/77
--- NOTE | 2019-06-23 12:01 | NUR ---
Nutrition Follow-Up Notes Wt.: 61.[address] swallow evaluation took place on 06/21 with recommendations for pureed diet texture with nectar thickened liquids. Tolerating current diet with no s/s aspiration or difficulty swallowing. Poor dentition noted. Documented PO intake 25-50% x 2 meals. No reports of GI distress at this time. Est. Needs: 1550 kcal to 1900 kcal (25-30 kcal/kgBW), 63 gms to 76 gms pro (1.0-1.2 gms/kg BW). Will continue to monitor pertinent labs and reassess nutrient need prn Labs: BUN 33H, AST 53H, Cr 1.43H, ALKP 200H, Ca 8.1L, POC <180 mg/dL Skin: Hood scale 14, mod risk, pt's coccyx, sacrum blanchable redness per ice carver. Pls refer to latest mushroom growth media mixer's notes for further details re: tx plans GI: Pt had 1 BM this morning per ice carver. PES: 1. Partially resolved: Increased nutrient needs r/t acute/chronic medical condition aeb intubated, sedated, mod hypoalbuminemia,NPO. (ongoing) 2. Altered nutrition related lab values r/t current/chronic medical condition aeb elev. renal labs, LFTs hypocalcemia and mod hypoalbuminemia (ongoing) Will continue to monitor NPO status, PN tolerance, skin status, pertinent labs and weight trend. F/u in 2 to 3 days. Rec.: 1.) Continue pureed diet w/NTL as recommended by ST 2. Add Ensure Enlive BID w/meals for supplementation w/1 packet thickener 3.) Refer to RD for further nutrition educ. and weight monitoring upon discharge. 4.) Continue current plan of care.
[2019-06-23 17:00] VITALS: BP 132/75
[2019-06-23] MEDS: Ensure Enlive Strawberry 8oz Bottle PO SCH (18:10)
[2019-06-23] MEDS ORDERED: TPN PER PHARMACY IV NR ×7 (20:00)
[2019-06-23 22:00] VITALS: BP 152/78
[2019-06-24] MEDS: LEVALBUTEROL HCL 1.25 MG/3 ML NEB NEB SCH ×5 (00:06→23:44)
--- NOTE | 2019-06-24 01:41 | NUR ---
Report given to FREDY Alexis and to assume care.
[2019-06-24] MEDS: ACCU-CHEK COMFORT CURVE STRIP VI SCH ×5 (01:55→23:45)
[2019-06-24] MEDS: InsuLIN REG 1unit/0.01ml Soln (100units/ml) SC SCH ×5 (01:55→23:47)
--- NOTE | 2019-06-24 02:15 | NUR ---
OPENING NOTE RECEIVED REPORT FROM STORE RECEIVING SPECIALIST RN. ASSUMING ROLE OF CARE OF PATIENT AT THIS TIME. PATIENT SHOWING NO SIGN OF DISTRESS, SHORTNESS OF BREATH, AND PATIENT DENIES ANY PAIN AT THIS TIME. BED LOWERED, CALL LIGHT WITHIN REACH, AND PATIENT WILL BE ROUNDED ON EVERY HOUR AND NEEDED.
[2019-06-24 05:00] VITALS: BP 141/72
[2019-06-24] MEDS: LEVOTHYROXINE SODIUM 25 MCG TAB PO SCH (05:43)
--- NOTE | 2019-06-24 07:30 | NUR ---
Opening Shift Note Assumed care of patient, awake and alert. No S/S of distress/SOB. PT denies having any pain at this time and no s/s of pain noted. Bed in lowest and locked position with side rails upx2 and call light in reach. Instructed on POC and to call for assist PRN, will continue to monitor for changes Q1hr and PRN.
[2019-06-24 08:22] VITALS: BP 101/64
[2019-06-24 08:31] LABS: Albumin 2.4 g/dL (3.4-5.0); Magnesium 2.1 mg/dL (1.6-2.6); Potassium 4.3 mmol/L (3.5-5.1)
[2019-06-24 08:33] LABS: BUN/Creatinine Ratio 21.4; Bilirubin, Total 0.8 mg/dL (0.2-1.0); Phosphorus 3.5 mg/dL (2.5-4.90); Total Protein 6.3 g/dL (6.4-8.2)
[2019-06-24] MEDS ORDERED: MIRTAZAPINE 30 MG TAB PO PRN (09:00)
[2019-06-24] MEDS: SACUBITRIL-VALSARTAN 24mg/26mg TAB PO SCH ×2 (10:00→22:04)
[2019-06-24] MEDS: METOPROLOL SUCCINATE XL 50 MG TAB PO SCH (10:00)
[2019-06-24] MEDS: OMEPRAZOLE 20MG/10ML ORAL SUSP GT SCH (10:39)
[2019-06-24] MEDS: APIXABAN 2.5 MG TAB NG SCH ×2 (10:40→22:04)
[2019-06-24] MEDS: DOCUSATE SOD 100 MG CAP PO SCH ×2 (10:40→22:04)
[2019-06-24] MEDS: cefTRIAXone 1GM/50ML D5W 50 ML IV SCH (10:41)
[2019-06-24] MEDS: Ensure Enlive Strawberry 8oz Bottle PO SCH ×2 (10:41→18:57)
--- NOTE | 2019-06-24 11:22 | NUR ---
Pt unable to sign appeal discharge form due to confusion. Granddaughter was at bedside and sign for Pt
[2019-06-24] MEDS: FLUCONAZOLE 200MG/100ML 100 ML IV SCH (13:59)
[2019-06-24 14:00] VITALS: BP 115/58
[2019-06-24 17:00] VITALS: BP 103/55
--- NOTE | 2019-06-24 19:15 | NUR ---
Opening Shift Note Received report from lin Torres RN. Assumed care of patient, awake and alert. No S/S of distress/SOB. Sitter at bedside. Patient denies having any pain at this time and no s/s of pain noted. Bed in lowest and locked position with side rails upx2 and call light in reach. Instructed on POC and to call for assist PRN, will continue to monitor for changes Q1hr and PRN.
[2019-06-24 20:00] VITALS: BP 123/71
[2019-06-24] MEDS ORDERED: TPN PER PHARMACY IV NR ×7 (20:00)
[2019-06-24 22:00] VITALS: BP 123/71
[2019-06-25] VITALS (7 sets, daily range): BP systolic 100–150; BP diastolic 58–95
[2019-06-25] MEDS: LEVOTHYROXINE SODIUM 25 MCG TAB PO SCH (05:46)
[2019-06-25] MEDS: ACCU-CHEK COMFORT CURVE STRIP VI SCH ×4 (06:00→23:45)
[2019-06-25] MEDS: InsuLIN REG 1unit/0.01ml Soln (100units/ml) SC SCH ×4 (06:36→23:46)
--- NOTE | 2019-06-25 06:50 | NUR ---
ROUNDS PATIENT IS ALERT AND AWAKE, DELAYED RESPONSE TO QUESTIONS, ANSWERS QUESTIONS APPROPRIATELY AT TIMES, BUT CONFUSED AT TIMES. REPOSITIONED PATIENT TO LEFT SIDE AND CLEANSE PATIENT'S FACE AND YUNG AREA. PATIENT IS RESTING IN BED, NO DISTRESS NOTED, SATURATING AT 95% ON ROOM AIR. SITTER AT BEDSIDE.
[2019-06-25] MEDS: LEVALBUTEROL HCL 1.25 MG/3 ML NEB NEB SCH ×3 (07:10→19:48)
[2019-06-25 07:12] LABS: Albumin 2.5 g/dL (3.4-5.0); Calcium 8.1 mg/dL (8.5-10.1); Magnesium 2.4 mg/dL (1.6-2.6); Potassium 4.4 mmol/L (3.5-5.1)
[2019-06-25 07:16] LABS: BUN/Creatinine Ratio 25.4; Bilirubin, Total 0.7 mg/dL (0.2-1.0); Phosphorus 3.5 mg/dL (2.5-4.90); Total Protein 6.3 g/dL (6.4-8.2)
[2019-06-25] MEDS: cefTRIAXone 1GM/50ML D5W 50 ML IV SCH (09:46)
[2019-06-25] MEDS: APIXABAN 2.5 MG TAB NG SCH ×2 (09:47→21:36)
[2019-06-25] MEDS: DOCUSATE SOD 100 MG CAP PO SCH ×2 (09:47→21:36)
[2019-06-25] MEDS: SACUBITRIL-VALSARTAN 24mg/26mg TAB PO SCH ×2 (09:47→21:35)
[2019-06-25] MEDS: Ensure Enlive Strawberry 8oz Bottle PO SCH ×2 (09:47→17:50)
[2019-06-25] MEDS: OMEPRAZOLE 20MG/10ML ORAL SUSP GT SCH (09:49)
[2019-06-25] MEDS: METOPROLOL SUCCINATE XL 50 MG TAB PO SCH (10:00)
--- NOTE | 2019-06-25 11:04 | NUR ---
AWARE OF PT TELEMETRY READING OF A-FLUTTER. NO NEW ORDERS AT THIS TIME.
--- NOTE | 2019-06-25 11:25 | NUR ---
SPOKE TO DR. MARK. ACCORDING TO , THE PRESSURE DRESSING ON THE RIGHT GROIN IS TO REMAIN ON THE HEMATOMA SITE.
[2019-06-25] MEDS: FLUCONAZOLE 200MG/100ML 100 ML IV SCH (12:13)
--- NOTE | 2019-06-25 13:00 | NUR ---
PAGED DR. AVALOS FOR CLARIFICATION ON THE ZOLL LIFE VEST ORDER.
--- NOTE | 2019-06-25 13:52 | NUR ---
RECEIVED CALL BACK FROM DR. AVALOS FOR CLARIFICATION ON THE ZOLL LIFE VEST ORDER. ACCORDING TO , THE ZOLL LIFE VEST WAS NOT APPROVED AND THE PT WILL HAVE AN OUT PT F/U.
--- NOTE | 2019-06-25 14:27 | NUR ---
Nutrition Follow-Up Notes Wt.: 54.9 kg today. Noted 7.0 kg weight loss in last 2 days likely d/t ? fluid loss aeb negative I & Os for past few days. Pt's on oxygen via nasal cannula, asleep, family member at bedside during rounds this morning. 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 Pt's usually has fair appetite, tries to feed him regularly and take meals not as much as he used to as per pt, he's not hungry. Pt's currently on Pureed Cardiac diet with Ensure Enlive 1 carton TID, has inadequate PO intake aeb <25% ave. consumed meals (x5) in last 2.5 days d/t pt refused, per nursing. Pt's currently on TPN @ 58 ml/hr providing 1470 kcal, 70 gms pro, 1190 NPCs. Pt with adequate PN support d/t mod initiation rate delivery of less concentrated formula aeb current PN infusion meets 77% to 94% of est caloric needs and 92% of est protein needs. Discussed with family member the importance/benefits of PN support while pt's PO intake remains inadequate and r/t pt's current medical condition and he verbalized understanding. Noted pt's to receive tonight another TPN @56 ml/hr to provide 1530 kcal, 60 gms pro, 1290 NPCs and 7% Fat. Est. Needs: 1550 kcal to 1900 kcal (25-30 kcal/kgBW), 63 gms to 76 gms pro (1.0-1.2 gms/kg BW). Will continue to monitor pertinent labs and reassess nutrient need prn Labs: Gluc 145 H, Cl 111 H, BUN 45 H, Cr 1.77 H, Ca 8.1 L, AST 59 H, ALT 116 H, Tpro 6.3 L, Alb 2.5 L; Prealb 10.5 L, Trig 126 wnl Skin: Hood scale 14, mod risk, pt's coccyx, sacrum blanchable redness per certified veterinary technician. Pls refer to latest radiation technician's notes for further details re: tx plans GI: Pt had 1 BM this morning per certified veterinary technician. PES: 1.) Partially resolved: Increased nutrient needs r/t acute/chronic medical condition aeb intubated, sedated, mod hypoalbuminemia, NPO. 2.) Altered nutrition related lab values r/t current/chronic medical condition aeb elev. renal labs, LFTs hypocalcemia and mod hypoalbuminemia (ongoing) Will continue to monitor PO intake, PN tolerance, skin status, pertinent labs and weight trend. F/u in 2 to 3 days. Rec.: 1.) Continue close supervision and feeding assistance prn during meals. 2.) Consider Pureed Cardiac diet w/NTL as recommended by prn for better PO tolerance 3.) If pt's PO intake remains inadequate (<75%), continue PN support that meets at least 75% of est nutrient needs or consider EN support if medically appropriate. 4.) Refer to RD for further nutrition educ. and weight monitoring upon discharge. 5.) Continue current plan of care.
[2019-06-25] MEDS ORDERED: TPN PER PHARMACY IV NR ×7 (20:00)
[2019-06-25] MEDS: ACETAMINOPHEN 325 MG TAB PO PRN (21:37)
[2019-06-26] MEDS: LEVALBUTEROL HCL 1.25 MG/3 ML NEB NEB SCH ×4 (01:20→20:01)
[2019-06-26 05:00] VITALS: BP 95/58
[2019-06-26] MEDS: LEVOTHYROXINE SODIUM 25 MCG TAB PO SCH (05:33)
[2019-06-26] MEDS: ACCU-CHEK COMFORT CURVE STRIP VI SCH ×3 (06:24→17:43)
[2019-06-26] MEDS: InsuLIN REG 1unit/0.01ml Soln (100units/ml) SC SCH ×3 (06:25→17:43)
--- NOTE | 2019-06-26 06:42 | NUR ---
ROUNDS Patient is awake and alert, answers questions in a delayed fashion appropriately but lethargic. No distress noted and patient denies pain, saturating at 97% on room air, blood sugar is 135 covered with 2 units of insulin. Sitter at bedside.
--- NOTE | 2019-06-26 07:22 | NUR ---
Opening Shift Note Assumed care of patient, sleeping in bed. No S/S of distress/SOB or pain. Sitter sitting in room, will continue to monitor for changes Q1hr and PRN.
[2019-06-26 08:00] VITALS: BP 109/57
[2019-06-26] MEDS: Ensure Enlive Strawberry 8oz Bottle PO SCH ×2 (08:00→17:43)
[2019-06-26 08:06] LABS: BUN/Creatinine Ratio 26.4; Bilirubin, Total 0.7 mg/dL (0.2-1.0); Phosphorus 3.3 mg/dL (2.5-4.90); Potassium 4.2 mmol/L (3.5-5.1)
[2019-06-26 08:07] LABS: Albumin 2.3 g/dL (3.4-5.0); Magnesium 2.2 mg/dL (1.6-2.6); Total Protein 6.1 g/dL (6.4-8.2)
[2019-06-26 08:45] VITALS: BP 109/57
[2019-06-26] MEDS: DOCUSATE SOD 100 MG CAP PO SCH ×2 (08:58→22:00)
[2019-06-26] MEDS: APIXABAN 2.5 MG TAB NG SCH (08:58)
[2019-06-26] MEDS: cefTRIAXone 1GM/50ML D5W 50 ML IV SCH (08:58)
[2019-06-26] MEDS: METOPROLOL SUCCINATE XL 50 MG TAB PO SCH (08:59)
[2019-06-26] MEDS: APIXABAN 2.5 MG TAB PO SCH ×2 (10:00→21:08)
[2019-06-26] MEDS: PANTOPRAZOLE 40 MG TAB PO SCH (10:40)
[2019-06-26] MEDS: SACUBITRIL-VALSARTAN 24mg/26mg TAB PO SCH ×2 (10:40→21:08)
[2019-06-26] MEDS: FLUCONAZOLE 200MG/100ML 100 ML IV SCH (12:12)
[2019-06-26 12:44] VITALS: BP 111/65
[2019-06-26 16:43] VITALS: BP 116/59
--- NOTE | 2019-06-26 19:30 | NUR ---
Opening Shift Note Assumed care of patient, oriented to self. No S/S of distress/SOB or pain. Caldera patent and draining to cloudy urine. Follows command at this time. Sitter at bedside, will continue to monitor.
[2019-06-26] MEDS ORDERED: TPN PER PHARMACY IV NR ×8 (20:00)
[2019-06-26] MEDS: ACETAMINOPHEN 325 MG TAB PO PRN (21:08)
[2019-06-26 22:00] VITALS: BP 122/69
[2019-06-27] MEDS: LEVALBUTEROL HCL 1.25 MG/3 ML NEB NEB SCH ×4 (01:14→20:00)
--- NOTE | 2019-06-27 01:30 | NUR ---
Patient tried to pull out his IV, per sitter. Applied mittens at this time. Turned to his side and every 2 hours, bed in lowest and locked position, sitter at bedside, will continue to monitor
[2019-06-27 05:00] VITALS: BP 130/63
[2019-06-27] MEDS: InsuLIN REG 1unit/0.01ml Soln (100units/ml) SC SCH ×4 (06:00→18:01)
[2019-06-27] MEDS: LEVOTHYROXINE SODIUM 25 MCG TAB PO SCH (06:31)
[2019-06-27] MEDS: ACCU-CHEK COMFORT CURVE STRIP VI SCH ×4 (06:31→18:04)
[2019-06-27] MEDS: Ensure Enlive Strawberry 8oz Bottle PO SCH ×2 (08:00→18:03)
[2019-06-27 08:57] VITALS: BP 100/54
[2019-06-27 09:05] LABS: Albumin 2.4 g/dL (3.4-5.0); Calcium 7.9 mg/dL (8.5-10.1); Potassium 3.7 mmol/L (3.5-5.1)
[2019-06-27 09:11] LABS: BUN/Creatinine Ratio 24.3; Bilirubin, Total 0.7 mg/dL (0.2-1.0); Phosphorus 3.2 mg/dL (2.5-4.90); Pre Albumin 13.9 mg/dL (20.0-40.0); Total Protein 6.2 g/dL (6.4-8.2)
[2019-06-27] MEDS: PANTOPRAZOLE 40 MG TAB PO SCH ×2 (10:00→10:58)
[2019-06-27] MEDS: SACUBITRIL-VALSARTAN 24mg/26mg TAB PO SCH ×3 (10:00→22:08)
[2019-06-27] MEDS: METOPROLOL SUCCINATE XL 50 MG TAB PO SCH ×2 (10:00→10:57)
[2019-06-27] MEDS: APIXABAN 2.5 MG TAB PO SCH ×3 (10:00→22:08)
[2019-06-27] MEDS: DOCUSATE SOD 100 MG CAP PO SCH ×3 (10:00→22:00)
--- NOTE | 2019-06-27 10:15 | NUR ---
MD ordered to hold all oral meds for 1000, as well as insulin coverage at 1130, and all pain meds. Will continue to monitor patient Q15 minutes.
--- NOTE | 2019-06-27 10:30 | NUR ---
CT SCAN ORDERED STAT for ALOC
--- NOTE | 2019-06-27 10:30 | NUR ---
MED PASS Went into room to pass 1000 meds, patient squeezed my hand when asked, but received no verbal response. Informed hospitalist Dr. James MD, who immediately came in to room to assess patient; new orders received.
[2019-06-27] MEDS: cefTRIAXone 1GM/50ML D5W 50 ML IV SCH (10:56)
--- NOTE | 2019-06-27 11:41 | NUR ---
FLUID BOLUS Fluid bolus ordered, one, at 500mL/hour.
[2019-06-27] MEDS ORDERED: SODIUM CHLORIDE 0.9% 1,000 ML IV ONE (11:45)
--- NOTE | 2019-06-27 11:54 | NUR ---
Patient blood sugar reading is 135, MD instructed to hold insulin at this time.
--- NOTE | 2019-06-27 12:00 | NUR ---
Nutrition Follow-Up Notes Wt.: 58.4 kg Pt's on oxygen via nasal cannula, asleep no family by bedside. Pt's currently on TPN @ 58 ml/hr providing 1490 kcal, 50 gms pro, 1290 NPCs. Pt with adequate PN support d/t mod initiation rate delivery of less concentrated formula aeb current PN infusion meets 77% to 94% of est caloric needs however meets only 65-79% of est protein needs. pt is also now advanced on pureed diet with inadequate PO of < 50% x 4 per RN doc Est. Needs: 1550 kcal to 1900 kcal (25-30 kcal/kgBW), 63 gms to 76 gms pro (1.0-1.2 gms/kg BW). Will continue to monitor pertinent labs and reassess nutrient need prn Labs: ALB 2.3 L, GLU 133 H. CA 8.0 L. Skin: Hood scale 15, mod risk, pt's coccyx, sacrum blanchable redness per cigar patcher. Pls refer to latest industrial ecology technician's notes for further details re: tx plans GI: Pt had 1 BM yesterday per cigar patcher. PES: 1.) Partially resolved: Increased nutrient needs r/t acute/chronic medical condition aeb intubated, sedated, mod hypoalbuminemia, NPO. 2.) Altered nutrition related lab values r/t current/chronic medical condition aeb elev. renal labs, LFTs hypocalcemia and mod hypoalbuminemia (ongoing) Will continue to monitor PO intake, PN tolerance, skin status, pertinent labs and weight trend. F/u in 2 to 3 days. Rec.: 1.) Continue close supervision and feeding assistance prn during meals. 2.) Consider Pureed Cardiac diet w/NTL as recommended by prn for better PO tolerance 3.) If pt's PO intake remains inadequate (<75%), continue PN support that meets at least 75% of est nutrient needs or consider EN support if medically appropriate. 4.) Refer to RD for further nutrition educ. and weight monitoring upon discharge. 5.) Continue current plan of care.
[2019-06-27] MEDS: FLUCONAZOLE 200MG/100ML 100 ML IV SCH (12:34)
[2019-06-27 13:00] VITALS: BP 118/51
--- NOTE | 2019-06-27 14:30 | NUR ---
D/C Planning Per SS consult for SNF placement. Per SS Karley Pt does not qualify for a SNF placement at this time.
--- NOTE | 2019-06-27 15:44 | NUR ---
Assessment Pt is a 74 yr old male who was non-verbal, unalert and disoriented. Pt had no family bedside when SW came to do an assessment. SW called daughter Kendra, his emergency contact, at [phone]. Pts Grandson, Andrew, is another person of contact at [phone]. Prior to admit, pt was living with his daughter Kendra, her son Andrew, and the pts . Pt was ambulatory, able to verbally communicate and able to complete ADLs until recent admit. Pts grandson noticed that he was acting funny, with slurred speech, so he called 911. Pt has history with strokes. Pts Primary is Dr. Morley. Pt does not have advanced directive. Kendra stated that pt is a [employer]. Pt is currently unable to communicate and feed himself. Pts daughter stated that they would be unable to take care of pt in his current state. SW discussed with Kendra that pt was not medically cleared for a SNF and educated her on Board and care facilities and the aid and attendance program that gives caregiving to Veterans. Pts transportation and other needs will be assessed upon d/c Addendum: 06/27/19 at 1544 by MOHSEN LOVE Amended: Links added.
--- NOTE | 2019-06-27 16:30 | NUR ---
Physical Therapy at bedside; patient transferred to chair with moderate assistance.
[2019-06-27 17:00] VITALS: BP 121/57
--- NOTE | 2019-06-27 19:40 | NUR ---
Opening Shift Note Assumed care of patient, oriented to self, cooperative to care at this time. No S/S of distress/SOB or pain. Bed in lowest and locked position, sitter at bedside, will continue to monitor for changes Q1hr and PRN.
[2019-06-27] MEDS ORDERED: TPN PER PHARMACY IV NR ×10 (20:00)
[2019-06-27 22:00] VITALS: BP 97/56
[2019-06-28] MEDS: LEVALBUTEROL HCL 1.25 MG/3 ML NEB NEB SCH ×4 (01:09→19:32)
[2019-06-28 04:28] VITALS: BP 97/56
[2019-06-28 05:00] VITALS: BP 110/55
[2019-06-28] MEDS: InsuLIN REG 1unit/0.01ml Soln (100units/ml) SC SCH ×4 (06:00→18:00)
[2019-06-28] MEDS: LEVOTHYROXINE SODIUM 25 MCG TAB PO SCH (06:12)
[2019-06-28] MEDS: ACCU-CHEK COMFORT CURVE STRIP VI SCH ×4 (06:12→18:57)
[2019-06-28 06:26] LABS: Albumin 2.3 g/dL (3.4-5.0); BUN/Creatinine Ratio 24.4; Calcium 8.1 mg/dL (8.5-10.1); Magnesium 2.1 mg/dL (1.6-2.6); Potassium 3.6 mmol/L (3.5-5.1)
[2019-06-28 06:29] LABS: Bilirubin, Total 0.6 mg/dL (0.2-1.0); Phosphorus 2.9 mg/dL (2.5-4.90); Total Protein 5.9 g/dL (6.4-8.2)
[2019-06-28] MEDS: Ensure Enlive Strawberry 8oz Bottle PO SCH ×2 (08:00→18:00)
[2019-06-28 09:00] VITALS: BP 115/56
[2019-06-28] MEDS: cefTRIAXone 1GM/50ML D5W 50 ML IV SCH (10:19)
[2019-06-28] MEDS: APIXABAN 2.5 MG TAB PO SCH ×2 (10:25→21:14)
[2019-06-28] MEDS: SACUBITRIL-VALSARTAN 24mg/26mg TAB PO SCH ×2 (10:25→21:13)
[2019-06-28] MEDS: DOCUSATE SOD 100 MG CAP PO SCH (10:27)
--- NOTE | 2019-06-28 10:35 | NUR ---
LEFT MESSAGE ON DR. MARK'S PHONE TO INFORM PATIENT MEDICATIONS NEED TO BE CHANGED TO A CRUSHABLE FORM, AND PT GRANDSON WOULD LIKE TO TALK TO HIM REGARDING PT DISCHARGE
--- NOTE | 2019-06-28 11:30 | NUR ---
WOUND CARE NOTE: IN TO ASSESS PATIENT'S SKIN INTEGRITY AT THIS TIME. PATIENT HAS CURRENT GIANNA SCORE OF 15. HE HAS SITTER AT BEDSIDE. PATIENT CAN TURN WITH MINIMAL ASSISTANCE BY STAFF. SKIN IS GOOD, HE HAS BLANCHABLE SKIN TO ALL BONY PROMINENCES. NO OPEN OR DRAINING AREAS NOTED. UPDATED SKIN/WOUND CARE PLAN. NO FURTHER WOUND CARE MONITORING IS NEEDED AT THIS TIME.
[2019-06-28 12:44] VITALS: BP 118/60
[2019-06-28] MEDS: FLUCONAZOLE 200MG/100ML 100 ML IV SCH (13:51)
[2019-06-28] MEDS: ACETAMINOPHEN 325 MG TAB PO PRN (14:46)
[2019-06-28] MEDS ORDERED: HYDROCORTISONE 2.5% TOPICAL CREAM 30GM TUBE TOP PRN (15:15)
--- NOTE | 2019-06-28 16:46 | NUR ---
SWALLOW EVALUATED WITH FAMILY PRESENT. PATIENT HAS NO TEETH OR DENTURES. NURSING REPORTS PATIENT COUGHED ON THIN LIQUIDS. PATIENT TOLERATED PUREE TEXTURE WITH NECTAR THICKENED LIQUIDS WITH NO OVERT SIGNS OR SYMPTOMS OF ASPIRATION. NURSING NOTIFIED.
[2019-06-28 16:53] VITALS: BP 116/55
--- NOTE | 2019-06-28 19:30 | NUR ---
Opening Shift Note Assumed care of patient, awake but nonverbal. No S/S of distress/SOB or pain. Caldera draining cloudy, yellow urine to gravity. TPN @57ml/hr. Bed locked in lowest position, side rails upx2, call light within reach. Sitter at bedside for safety. Instructed on POC and to call for assist PRN, will continue to monitor for changes Q1hr and PRN.
[2019-06-28] MEDS ORDERED: TPN PER PHARMACY IV NR ×9 (20:00)
[2019-06-28 22:00] VITALS: BP_SYST 121; BP_SYST 122; BP_DIAS 72; BP_DIAS 77
[2019-06-29] MEDS: ACCU-CHEK COMFORT CURVE STRIP VI SCH ×3 (00:07→12:16)
[2019-06-29] MEDS: LEVALBUTEROL HCL 1.25 MG/3 ML NEB NEB SCH ×4 (00:38→19:05)
[2019-06-29 05:44] VITALS: BP 114/61
[2019-06-29] MEDS: InsuLIN REG 1unit/0.01ml Soln (100units/ml) SC SCH ×3 (06:00→12:21)
[2019-06-29] MEDS: LEVOTHYROXINE SODIUM 25 MCG TAB PO SCH (06:27)
[2019-06-29 06:34] LABS: Basophils # (auto) 0 uL; Basophils % (auto) 0.4 % (0.0-2.0); Eosinophils # (auto) 0.5 uL; Eosinophils % (auto) 5.2 % (0.0-7.0); Hematocrit 30.2 % (41.0-53.0); Hemoglobin 10.4 g/dL (13.5-17.5); Lymphocytes % (auto) 10.9 % (10.0-50.0); Mean Corpuscular Hemoglobin 34.6 pg (28.0-32.0); Mean Corpuscular Hgb Conc. 34.3 g/dL (32.0-36.0); Monocytes # (auto) 0.7 uL; Monocytes % (auto) 7.4 % (0.0-12.0); Neutrophils # (auto) 6.9 uL; Neutrophils % (auto) 76.1 % (37.0-80.0); Platelet Count (auto) 389 10^3/uL (140-450); Red Blood Cells 2.99 10^6/uL (4.5-5.90); Red Cell Distribution Width 14.5 % (11.8-14.3)
[2019-06-29 06:41] LABS: Albumin 2.4 g/dL (3.4-5.0); Calcium 8.2 mg/dL (8.5-10.1); Magnesium 2.2 mg/dL (1.6-2.6); Potassium 3.6 mmol/L (3.5-5.1)
[2019-06-29 06:43] LABS: BUN/Creatinine Ratio 23.9; Bilirubin, Total 0.5 mg/dL (0.2-1.0); Phosphorus 3.9 mg/dL (2.5-4.90); Total Protein 6.3 g/dL (6.4-8.2)
[2019-06-29] MEDS: Ensure Enlive Strawberry 8oz Bottle PO SCH (08:00)
[2019-06-29 09:00] VITALS: BP 97/61
[2019-06-29] MEDS ORDERED: PANTOPRAZOLE 40 MG/10 ML VIAL INJ IV SCH (10:00)
[2019-06-29] MEDS ORDERED: FAMOTIDINE (10MG/ML) 2ML VL IV SCH (10:00)
[2019-06-29] MEDS ORDERED: DOCUSATE ORAL LIQUID 100 MG/10 ML UD GT SCH (10:00)
[2019-06-29] MEDS: APIXABAN 2.5 MG TAB PO SCH (10:11)
[2019-06-29] MEDS: ACETAMINOPHEN 325 MG TAB PO PRN (10:11)
[2019-06-29] MEDS: SACUBITRIL-VALSARTAN 24mg/26mg TAB PO SCH (10:11)
[2019-06-29] MEDS ORDERED: FLUCONAZOLE 100 MG TAB PO ONE (10:30)
--- NOTE | 2019-06-29 10:40 | NUR ---
FAMILY AT BEDSIDE, DISCUSSING PLAN OF CARE WITH DR MARK. HOSPICE CONSULT PLACED.
--- NOTE | 2019-06-29 14:21 | NUR ---
Respiratory note: 1400 MED NEB TX HELD. PT IS IN THE UPHOLSTERER ASSEMBLY LINE. Addendum: 06/29/19 at 1423 by KEYUR ABEBE RT DISREGARD NOTED. WRONG PT.
--- NOTE | 2019-06-29 15:10 | NUR ---
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 PATIENT TO BE TRANSPORTED HOME BY [facility], ETA 1900.
--- NOTE | 2019-06-29 15:15 | NUR ---
TPN TPN TITRATED TO 24 ML/HR
--- NOTE | 2019-06-29 15:34 | NUR ---
MRSA SWAB COLLECTED AND SENT TO LAB VIA BULLET.
--- NOTE | 2019-06-29 15:39 | NUR ---
SPOKE TO DOCTOR MARK, ORDERS TO KEEP TRENT CATHETER IN PLACE ON DISCHARGE HOME TO HOSPICE.
--- NOTE | 2019-06-29 15:41 | NUR ---
D/C Planning Per consult for hospice. Information and choice letter was given to [facility] via phone. Pt [facility] requested [facility]. Pt [facility] verbalize understanding d/c plan. Contacted [facility] Ph:) Fax:( [phone]) faxed medical records. Per Manuela from [facility] referral has been received and Pt [facility] has sign consent. Contacted [facility] ph:) spoke to [facility] [[email or web address] Advised Matthew from [facility] to arrange pick up man time at 19:00 via [employer]. Advised FREDY Howe. Addendum: 06/29/19 at 1551 by MARIN AHUMADA Amended: Links added.
[2019-06-29 15:58] VITALS: BP 112/56
--- NOTE | 2019-06-29 16:15 | NUR ---
TPN TPN RATE DECREASED TO 12ML/HR
[2019-06-29 17:00] VITALS: BP 114/66
--- NOTE | 2019-06-29 17:33 | NUR ---
TPN TPN TURNED OFF, WILL CONTINUE TO MONITOR.
--- NOTE | 2019-06-29 18:02 | NUR ---
RIGHT IJ CENTRAL REMOVED, STITCHES REMOVED, XEROFORM, GAUZE PLACED OVER INSERTION IV REMOVED DURING PT EXHALE, PRESSURE HELD FOR 5 MINS, GAUZE SECURED WITH FOAM TAPE, PT TOLERATED WELL, WILL CONTINUE TO MONITOR.
--- NOTE | 2019-06-29 19:05 | NUR ---
Respiratory note: AT BEDSIDE FOR MED NEB TX. MED NEB TX GIVEN TO PT VIA BLOW BY DUE TO POOR PT EFFORT GIVEN . PT HAS SITTER AT BEDSIDE.
[2019-06-29] MEDS ORDERED: TPN PER PHARMACY IV NR ×9 (20:00)
--- NOTE | 2019-06-29 20:00 | NUR ---
Discharge instructions given as ordered. Encourage to follow up with PMD as instructed. All questions and concerns addressed. Medication reconciliation form completed and copy given to patient. Patient going home with [facility]. IV removed with catheter intact, pressure dressing applied. Telemetry unit returned to ICU. Patient taken to vehicle via [facility] with all personal belongings. No distress noted at time of departure.
[2019-06-30] MEDS ORDERED: FLUCONAZOLE 100 MG TAB PO SCH (10:00)
== END 2019-06-29 20:00 | disposition hospice, home (50) | DRG 871 ==
LOC: DOU IN ICU 00:40 → ICU WEST 06-17 14:42 → DOU IN ICU 06-21 14:56 → TELE-WESTW 06-23 07:50
PROVIDERS: ADMIT Internal Medicine; ATTEND Family Medicine
PROC: 02HV33Z Insertion of Infusion Device into Superior Vena Cava, Percutaneous Approach (ICD-10-PCS; 2019-06-17)
PROC: 5A12012 Performance of Cardiac Output, Single, Manual (ICD-10-PCS; 2019-06-17)
PROC: 4A023N8 Measurement of Cardiac Sampling and Pressure, Bilateral, Percutaneous Approach (ICD-10-PCS; principal; 2019-06-22)
PROC: B2111ZZ Fluoroscopy of Multiple Coronary Arteries using Low Osmolar Contrast (ICD-10-PCS; 2019-06-22)
PROC: B2151ZZ Fluoroscopy of Left Heart using Low Osmolar Contrast (ICD-10-PCS; 2019-06-22)
PROC: 5A1945Z Respiratory Ventilation, 24-96 Consecutive Hours (ICD-10-PCS; 2019-06-22)
PROC: 0BH17EZ Insertion of Endotracheal Airway into Trachea, Via Natural or Artificial Opening (ICD-10-PCS; 2019-06-22)
DX: A41.9 Sepsis, unspecified organism (principal); J96.01 Acute respiratory failure with hypoxia; I63.9 Cerebral infarction, unspecified; I21.A1 Myocardial infarction type 2; J18.9 Pneumonia, unspecified organism; I46.9 Cardiac arrest, cause unspecified; R65.21 Severe sepsis with septic shock; I50.23 Acute on chronic systolic (congestive) heart failure; K72.00 Acute and subacute hepatic failure without coma; G92 Toxic encephalopathy; N39.0 Urinary tract infection, site not specified; I13.0 Hypertensive heart and chronic kidney disease with heart failure and stage 1 through stage 4 chronic kidney disease, or unspecified chronic kidney disease; N17.9 Acute kidney failure, unspecified; I42.9 Cardiomyopathy, unspecified; E03.9 Hypothyroidism, unspecified; E78.5 Hyperlipidemia, unspecified; F03.90 Unspecified dementia, unspecified severity, without behavioral disturbance, psychotic disturbance, mood disturbance, and anxiety; Z96.653 Presence of artificial knee joint, bilateral; I27.20 Pulmonary hypertension, unspecified; N18.9 Chronic kidney disease, unspecified; I48.91 Unspecified atrial fibrillation; Z87.891 Personal history of nicotine dependence; Z79.899 Other long term (current) drug therapy; Z86.73 Personal history of transient ischemic attack (TIA), and cerebral infarction without residual deficits
CPT/HCPCS: 36415; 36600; 70450; 71045; 76705; 80048; 80053; 80061; 80074; 81001; 82040; 82105; 82378; 82805; 82962; 83735; 83880; 84100; 84154; 84443; 84478; 84484; 85025; 85379; 85610; 85730; 86301; 86850; 86900; 86901; 87040; 87070; 87077; 87081; 87086; 87205; 92610; 92950; 93005; 93306; 93460; 93886; 94002; 94003; 94640; 95819; 97110; 97116; 97163; 97530; 99152; A4618; C1751; G0378; J0696; J1450; J1815; J2250; J3490; J7131